=== PATIENT | male | born 1955 | race Caucasian/White ===

== ENCOUNTER → 2016-08-14 | Outpatient (CLI) | payer MEDICARE, MEDICAID ==
[~2016-08-14] MED LIST: /IPRAINH INH; ASPI1TAB PO; ASPI81TA85 PO; BACL10TA2 PO; BUSP10TA PO; BUSP5TA PO; CELE40TA PO; COMBAER6 INH; CRES20TA PO; DILT120T PO; EFFE37.527 PO; FLUT50SP; GABA-283 PO; HALO05TA PO; HYDR10T PO; KLON0.5T PO; LIPI10TA PO; LISI5TAB PO; LYRI100C10 PO; LYRI150C PO; MELA1CAP2 PO; OMEP20CA3 PO; PRAD150C PO; SERO1TAB PO; TIZA4CAP3 PO; TRAZ100T2 PO; ULTR50TA PO; VENTAER IN
== END ==
LOC: M PAIN 14:00
PROVIDERS: ATTEND Nurse Practitioner Family
DX: Z09 Encounter for follow-up examination after completed treatment for conditions other than malignant neoplasm (principal); G89.29 Other chronic pain; M54.16 Radiculopathy, lumbar region; M25.552 Pain in left hip; M41.55 Other secondary scoliosis, thoracolumbar region; M32.9 Systemic lupus erythematosus, unspecified; F17.200 Nicotine dependence, unspecified, uncomplicated; Z79.01 Long term (current) use of anticoagulants; Z79.82 Long term (current) use of aspirin; Z79.891 Long term (current) use of opiate analgesic; Z79.899 Other long term (current) drug therapy; Z88.8 Allergy status to other drugs, medicaments and biological substances

== ENCOUNTER → 2016-09-09 | Outpatient (CLI) | payer MEDICARE, MEDICAID ==
--- NOTE | 2016-09-24 01:39 | ECWPNPC ---
PATIENT NAME: SHEEBA PAT : 1955 GENDER: MALE VISIT DATE: 09/09/2016 DISCHARGE DATE: 09/09/16 1510 VISIT LOCKED DATE TIME: PHYSICIAN: JADA MANSFIELD RESOURCE: JADA MANSFIELD REASON FOR APPOINTMENT 1. HIPS HISTORY OF PRESENT ILLNESS HISTORY OF PRESENT ILLNESS: PAIN THE PATIENT DESCRIBES THE PAIN... FALL RISK SCREENING: SCREENING :NO FALLS IN THE PAST YEAR TODAY'S VISIT: NOTES: RATES PAIN TODAY 8/10. NOTES PAIN AT HIPS, KNEES, WRISTS. PAIN IS CONSTANT, ACHING, BURNING, TENDER AND THROBBING.HAD RECENT RIGHT CARPAL TUNNEL RELEASE WITH EXCELLANT HEALING AND IMPROVEMENT IN MOBILITY AND SENSATION. REPORT MEDICATIONS ARE HELPFUL AND THAT TODAY IS A BAD DAY.. CURRENT MEDICATIONS TAKING COMBIVENT 18-103 MCG/ACT AEROSOL 2 PUFFS INHALATION FOUR TIMES DAILY NEEDED TAKING BUSPIRONE HCL 10 MG TABLET 1 TABLET ORALLY THREE TIMES A DAY TAKING DILTIAZEM HCL 240 MG TABLET ORALLY DAILY TAKING FLUTICASONE PROPIONATE 50 MCG/ACT SUSPENSION 1 SPRAY IN EACH NOSTRIL NASALLY ONCE A DAY TAKING LISINOPRIL 10 MG TABLET 1 TABLET ORALLY ONCE A DAY TAKING PRADAXA 150 MG TABLET P.O. BID TAKING NEXIUM 20 MG CAPSULE DELAYED RELEASE ORALLY ONCE DAILY TAKING SPIRIVA HANDIHALER ONCE DAILY TAKING CRESTOR 10 MG TABLET ORALLY ONCE DAILY TAKING DIGOXIN 125 MCG TABLET 1 TABLET ORALLY ONCE A DAY TAKING FINASTERIDE 5 MG TABLET 1 TABLET ORALLY ONCE A DAY TAKING BREO ELLIPTA 100-25 MCG/INH AEROSOL POWDER BREATH ACTIVATED 1 PUFF INHALATION ONCE A DAY TAKING ASPIR-81 81 MG TABLET DELAYED RELEASE 1 TABLET ORALLY ONCE A DAY TAKING CYCLOBENZAPRINE HCL 10 MG TABLET 1 TABLET ORALLY THREE TIMES A DAY TAKING VOLTAREN 1 % GEL DIRECTED TRANSDERMAL 4 GMSFOUR TIMES DAILY TO KNEE/BACK TAKING CITALOPRAM HYDROBROMIDE 40 MG TABLET 1 TAB ORALLY ONCE A DAY TAKING HALDOL 5MG TABLET 1 -2MG TAB ORAL DAILY TAKING TRAMADOL HCL 50 MG TABLET 1 -2T ABLETS ORALLY EVERY 6 HRS MDD=4 TAKING LYRICA 200 MG CAPSULE 1 CAPSULE ORALLY THREE TIMES DAILY MDD=3 TAKING PERCOCET 10-325 MG TABLET 1 TABLET NEEDED ORALLY Q 8-12 HRS PRN PAIN MDD=2 NOT-TAKING TERBINAFINE HCL 250 MG TABLET 1 TABLET ORALLY ONCE A DAY NOT-TAKING SYMBICORT 160-4.5 MCG/ACT AEROSOL 2 PUFFS INHALATION DAILY NOT-TAKING ROPINIROLE HCL 0.5 MG TABLET 1 -2 TAB ORALLY BEFORE BEDTIME NOT-TAKING ASPIRIN ADULT LOW STRENGTH 81 MG TABLET DELAYED RELEASE 1 TABLET ORALLY ONCE A DAY UNKNOWN VOLTAREN 1 % GEL DIRECTED TRANSDERMAL APPLY 4 GRAMS FOUR TIMES DAILY MEDICATION LIST REVIEWED AND RECONCILED WITH THE PATIENT PAST MEDICAL HISTORY LUPUS ALLERGIES BETA LUI (FOR ALLERGIES USE ONLY): DYSPNEA: ALLERGY ATORVASTATIN CALCIUM: JOINT PAIN: SIDE EFFECTS SOCIAL HISTORY GENERAL: TOBACCO USE ARE YOU A:CURRENT SMOKER LEARNING BARRIERS / SPECIAL NEEDS ORIENTED TO PLAN OF CARE: PATIENT, PAIN MANAGEMENT PATIENT, ORIENTED TO PLAN OF CARE: PATIENT, PAIN MANAGEMENT PATIENT. NEW PATIENT PAIN DIARY TODAY'S VISITNOTES FROM 0-10, WHAT LEVEL IS YOUR PAIN TODAY?0 PAIN CLINIC PFS, CLERGY, PUBLIC HEALTH REFERRALS PFS REFERRAL NEEDED?NO CLERGY REFERRAL NEEDED?NO PUBLIC HEALTH REFERRAL NEEDED?NO WAS THE PROVIDER NOTIFIED OF ANY PERTINENT INFO?NO PFS REFERRAL NEEDED?NO CLERGY REFERRAL NEEDED?NO PUBLIC HEALTH REFERRAL NEEDED?NO WAS THE PROVIDER NOTIFIED OF ANY PERTINENT INFO?NO REVIEW OF SYSTEMS CONSTITUTIONAL: ANY CHANGE IN YOUR MEDICAL CONDITION? NO . CHILLS NO . FEVER NO . INFECTION: DO YOU HAVE NEW INFECTIONS? NO . DO YOU HAVE HISTORY OF MRSA? NO . MUSCULOSKELETAL: ANY NEW PATTERNS OF PAIN OR NUMBNESS? NO . GASTROENTEROLOGY: ANY NEW CHANGE IN BOWEL CONTROL? NO . GENITOURINARY: ANY NEW CHANGE IN BLADDER CONTROL? NO . IS THERE A CHANCE YOU COULD BE ? NO . HEMATOLOGY/LYMPH: DO YOU TAKE ANY BLOOD THINNERS? (FOR EXAMPLE- COUMADIN, PLAVIX, AGGRENOX, PLATEL, PRADAXA, OR XARELTO) YES, PRADAXA . WHEN WAS YOUR LAST DOSE? DATE:09/09/16 TIME: 0600 . NEUROLOGY: HAVE YOU FALLEN IN THE PAST 6 MONTHS? NO . ANY NEW EXTREMITY NUMBNESS OR WEAKNESS? NO . CARDIOLOGY: DO YOU HAVE A PACEMAKER OR DEFIBRILLATOR? NO . RESPIRATORY: HAVE YOU BEEN SICK IN THE PAST WEEK? NO . FEVER NO . FLU LIKE SYMPTOMS? NO . COUGH NO . INTEGUMENTARY: DO YOU HAVE ANY RASHES OR OPEN SORES? NO . ALLERGIC/IMMUNO: ARE YOU ALLERGIC TO SHELLFISH OR IV DYE? NO . ANY NEW ALLERGIES? NO . PSYCHIATRIC: DO YOU HAVE THOUGHTS OF HURTING YOURSELF OR SOMEONE ELSE? NO . ARE YOU ABUSED, NEGLECTED, OR IN AN UNSAFE ENVIRONMENT? NO . ENDOCRINOLOGY: ARE YOU DIABETIC? NO . OTHER: DO YOU NEED ANY PRESCRIPTIONS? YES . IF YES, PLEASE LIST: PERCOCET AND CYCLOBENZAPRINE . ANY NEW PROBLEMS WITH YOUR MEDICATIONS? NO . WHEN DID YOU LAST EAT? ____ . WHEN DID YOU LAST DRINK? ____ . WHAT DID YOU LAST DRINK? ____ . NAME OF PERSON DRIVING YOU HOME? ____ . DO YOU HAVE ANY OTHER QUESTIONS OR CONCERNS NO . REVIEWED BY: PROVIDER: JADA HAMILTON . VITAL SIGNS WT 227.8 LBS, HT 72 IN, BMI 30.89 INDEX, BP 146/73 MM HG, HR 97 /MIN, RR 18 /MIN, TEMP 97.7 F, OXYGEN SAT % 98, NA INITIALS TL 1425, REVIEWED BY: CS. EXAMINATION GENERAL EXAMINATION: PSYCHALERT , ORIENTED X 3 , APPROPRIATE MOOD AND AFFECT , GOOD EYE CONTACT, TALKATIVE. LUNGS:FEW SCATTEREDWHEEZES AT BASES. COUGH ELICITED WITH DEEP BREATH. HEART:HEART RATE REGULAR. MUSCULOSKELETAL:MUSCLE STRENGTH TESTING 4+/5 BILATERAL UPPER AND LOWER EXTREMITIES., PALPATION: POSITIVE FOR PAIN OVER L/S SPINE. POSITIVE FOR PAIN OVER L/S PARSPINALS. SLOW TO RISE TO STANDING POSITION. POINT TENDERNESS PRESENT OVER BILATERAL TROCANTERS. POSTURE STOOPED. GAIT WIDEBASED ANTALGIC. EXTREMITIES:WELL-HEALED INCISION AT RIGHT WRIST. SENSITIVITY NOTED ALONG THE INCISION. ABLE TO FLEX AND EXTEND THE FINGERS WITHOUT DIFFICULTY. STATION IMPROVED IN THE THUMB FIRST AND SECOND FINGER.. ASSESSMENTS LUMBAR RADICULAR PAIN - M54.16 (PRIMARY) JOINT PAIN - M25.50 OTHER SECONDARY SCOLIOSIS, THORACOLUMBAR REGION - M41.55 LUPUS (SYSTEMIC LUPUS ERYTHEMATOSUS) - M32.9 HIP PAIN, LEFT - M25.552 TREATMENT LUMBAR RADICULAR PAIN REFILL CYCLOBENZAPRINE HCL TABLET, 10 MG, 1 TABLET, ORALLY, THREE TIMES A DAY, 30 DAY(S), 90, REFILLS 2 REFILL PERCOCET TABLET, 10-325 MG, 1 TABLET NEEDED, ORALLY, Q 8-12 HRS PRN PAIN MDD=2, 30 DAY(S), 60, REFILLS 0 NOTES: STOP PRADAXA 3 DAYS BEFORE INJECTION.PATIENT REFUSED ANY PRINTED INFORMATION ON INJECTION. VERBAL INFORMATION GIVEN AND PATIENT VERBALIZED UNDERSTANDING. CLINICAL NOTES: ISTOP REGISTRY REVIEWED AND DEMNOSTRATES COMPLLIANCE. BRINGS IN MEDICATIONS WHICH IS APPROPRIATE FOR WHAT WAS DISPENSED. RECENT URINE TOXICOLOGY REVIEWED. NO UNAUTHORIZED MEDICATIONS. NO ILLICIT SUBSTANCES AND PRESCRIBED MEDICATIONS WERE PRESENT. JOINT PAIN ARTHROCENTESIS INJECTION LARGE JOINT ([id number])JADA MANSFIELD 09/09/2016 3:00:26 PM > BILATERAL HIP BURSA INJECTION HIP PAIN, LEFT ARTHROCENTESIS INJECTION LARGE JOINT ([id number])JADA MANSFIELD 09/09/2016 3:00:26 PM > BILATERAL HIP BURSA INJECTION PROCEDURE CODES FA211 ESTABILISHED PATIENT [facility] FACILITY CHARGE G8730 PAIN ASSESS POS TOOL F/U PLAN DOC G8427 DOC MEDS VERIFIED W/PT OR RE DISPOSITION & COMMUNICATION FOLLOW UP AFTER INJECTION ELECTRONICALLY SIGNED BY AMADOR SANDRA ON 09/23/2016 AT 02:19 PM EST DISCLAIMER : THIS IS A VISIT SUMMARY EXTRACTED FROM THE [facility] CHART. IT IS NOT A COPY OF THE [employer] PROGRESS NOTE. CLARKE
== END ==
LOC: M PAIN 14:20
PROVIDERS: ATTEND Nurse Practitioner Family
DX: Z09 Encounter for follow-up examination after completed treatment for conditions other than malignant neoplasm (principal); M54.16 Radiculopathy, lumbar region; M25.552 Pain in left hip; M41.55 Other secondary scoliosis, thoracolumbar region; M32.9 Systemic lupus erythematosus, unspecified; F17.200 Nicotine dependence, unspecified, uncomplicated; Z88.8 Allergy status to other drugs, medicaments and biological substances; Z79.01 Long term (current) use of anticoagulants; Z79.82 Long term (current) use of aspirin; Z79.891 Long term (current) use of opiate analgesic; Z79.51 Long term (current) use of inhaled steroids; Z79.899 Other long term (current) drug therapy

== ENCOUNTER → 2016-10-05 | Outpatient (CLI) | payer MEDICARE, MEDICAID | LOC: M PAIN 09:40 | PROVIDERS: ATTEND Anesthesiology | DX: Z09 Encounter for follow-up examination after completed treatment for conditions other than malignant neoplasm (principal); G89.29 Other chronic pain; M70.62 Trochanteric bursitis, left hip; M54.9 Dorsalgia, unspecified; M32.9 Systemic lupus erythematosus, unspecified; Z88.8 Allergy status to other drugs, medicaments and biological substances; Z79.01 Long term (current) use of anticoagulants; Z79.52 Long term (current) use of systemic steroids; Z79.82 Long term (current) use of aspirin; Z79.891 Long term (current) use of opiate analgesic; Z79.899 Other long term (current) drug therapy ==

== ENCOUNTER → 2016-10-07 | Outpatient (CLI) | payer MEDICARE, MEDICAID ==
[~2016-10-07] MED LIST changes: +BUPIVACAINE HCL 0.25% 30 ML VIAL As Ordered ONE; +ISOVUE-M 300 61% 15ML VIAL (Q9967) As Ordered ONE; +LIDOCAINE 1% SDV INJ 30 ML VIAL As Ordered ONE; +TRIAMCINOLONE ACETONIDE SUSP 40 MG/ML VIAL (J3301) As Ordered ONE; +diazePAM 5 MG TAB As Ordered ONE; +oxyCODONE 5MG TAB As Ordered ONE
--- NOTE | 2016-10-07 14:55 | REP ---
Partial left hip series: Three views. History: Left hip injection for pain. 6 seconds of fluoroscopy time is reported. Findings: A sequence of three fluoroscopically obtained intraprocedural spot radiographs of the left hip document needle position and contrast injection associated with left hip injection procedure. Signed by Rajesh Dale MD 10/07/2016 05:45 P
--- NOTE | 2016-10-13 00:19 | ECWPNPC ---
PATIENT NAME: SHEEBA PAT : 1955 GENDER: MALE VISIT DATE: 10/07/2016 DISCHARGE DATE: 10/07/16 1047 VISIT LOCKED DATE TIME: PHYSICIAN: KAL SELLERS RESOURCE: KAL SELLERS REASON FOR APPOINTMENT 1. HIP BURSA INJ HISTORY OF PRESENT ILLNESS HISTORY OF PRESENT ILLNESS: PAIN THE PATIENT DESCRIBES THE PAIN... FALL RISK SCREENING: SCREENING :NO FALLS IN THE PAST YEAR CURRENT MEDICATIONS TAKING COMBIVENT 18-103 MCG/ACT AEROSOL 2 PUFFS INHALATION FOUR TIMES DAILY NEEDED, NOTES: 10-07-16699 TAKING BUSPIRONE HCL 10 MG TABLET 1 TABLET ORALLY THREE TIMES A DAY, NOTES: 10-07-16699 TAKING DILTIAZEM HCL 240 MG TABLET ORALLY DAILY, NOTES: 10-07-16699 TAKING FLUTICASONE PROPIONATE 50 MCG/ACT SUSPENSION 1 SPRAY IN EACH NOSTRIL NASALLY ONCE A DAY, NOTES: NONE TAKING LISINOPRIL 10 MG TABLET 1 TABLET ORALLY ONCE A DAY, NOTES: 10-07-16699 TAKING PRADAXA 150 MG TABLET P.O. BID, NOTES: 10-03-16 TAKING NEXIUM 20 MG CAPSULE DELAYED RELEASE ORALLY ONCE DAILY, NOTES: 10-07-16699 TAKING SPIRIVA HANDIHALER ONCE DAILY, NOTES: 10-07-16699 TAKING CRESTOR 10 MG TABLET ORALLY ONCE DAILY, NOTES: 10-06-162099 TAKING DIGOXIN 125 MCG TABLET 1 TABLET ORALLY ONCE A DAY, NOTES: 10-07-16699 TAKING FINASTERIDE 5 MG TABLET 1 TABLET ORALLY ONCE A DAY, NOTES: 10-06-162099 TAKING BREO ELLIPTA 100-25 MCG/INH AEROSOL POWDER BREATH ACTIVATED 1 PUFF INHALATION ONCE A DAY, NOTES: 10-07-16699 TAKING ASPIR-81 81 MG TABLET DELAYED RELEASE 1 TABLET ORALLY ONCE A DAY, NOTES: 10-03-16 TAKING VOLTAREN 1 % GEL DIRECTED TRANSDERMAL 4 GMSFOUR TIMES DAILY TO KNEE/BACK, NOTES: NONE TAKING CITALOPRAM HYDROBROMIDE 40 MG TABLET 1 TAB ORALLY ONCE A DAY, NOTES: 10-07-16699 TAKING HALDOL 5MG TABLET 1 -2MG TAB ORAL DAILY, NOTES: 10-07-16699 TAKING TRAMADOL HCL 50 MG TABLET 1 -2T ABLETS ORALLY EVERY 6 HRS MDD=4, NOTES: 10-07-16699 TAKING LYRICA 200 MG CAPSULE 1 CAPSULE ORALLY THREE TIMES DAILY MDD=3, NOTES: 10-07-16699 TAKING CYCLOBENZAPRINE HCL 10 MG TABLET 1 TABLET ORALLY THREE TIMES A DAY, NOTES: 10-07-16699 TAKING PERCOCET 10-325 MG TABLET 1 TABLET NEEDED ORALLY Q 8-12 HRS PRN PAIN MDD=2, NOTES: 10-07-16699 NOT-TAKING TERBINAFINE HCL 250 MG TABLET 1 TABLET ORALLY ONCE A DAY DISCONTINUED SYMBICORT 160-4.5 MCG/ACT AEROSOL 2 PUFFS INHALATION DAILY DISCONTINUED ROPINIROLE HCL 0.5 MG TABLET 1 -2 TAB ORALLY BEFORE BEDTIME DISCONTINUED ASPIRIN ADULT LOW STRENGTH 81 MG TABLET DELAYED RELEASE 1 TABLET ORALLY ONCE A DAY DISCONTINUED VOLTAREN 1 % GEL DIRECTED TRANSDERMAL APPLY 4 GRAMS FOUR TIMES DAILY MEDICATION LIST REVIEWED AND RECONCILED WITH THE PATIENT PAST MEDICAL HISTORY LUPUS ALLERGIES BETA LUI (FOR ALLERGIES USE ONLY): DYSPNEA: ALLERGY ATORVASTATIN CALCIUM: JOINT PAIN: SIDE EFFECTS SOCIAL HISTORY GENERAL: TOBACCO USE ARE YOU A:NONSMOKER LEARNING BARRIERS / SPECIAL NEEDS ORIENTED TO PLAN OF CARE: PATIENT, PAIN MANAGEMENT PATIENT, ORIENTED TO PLAN OF CARE: PATIENT, PAIN MANAGEMENT PATIENT. NEW PATIENT PAIN DIARY TODAY'S VISITNOTES FROM 0-10, WHAT LEVEL IS YOUR PAIN TODAY?0 PAIN CLINIC PFS, CLERGY, PUBLIC HEALTH REFERRALS PFS REFERRAL NEEDED?NO CLERGY REFERRAL NEEDED?NO PUBLIC HEALTH REFERRAL NEEDED?NO WAS THE PROVIDER NOTIFIED OF ANY PERTINENT INFO?NO PFS REFERRAL NEEDED?NO CLERGY REFERRAL NEEDED?NO PUBLIC HEALTH REFERRAL NEEDED?NO WAS THE PROVIDER NOTIFIED OF ANY PERTINENT INFO?NO REVIEW OF SYSTEMS CONSTITUTIONAL: ANY CHANGE IN YOUR MEDICAL CONDITION? NO . CHILLS NO . FEVER NO . INFECTION: DO YOU HAVE NEW INFECTIONS? NO . DO YOU HAVE HISTORY OF MRSA? NO . MUSCULOSKELETAL: ANY NEW PATTERNS OF PAIN OR NUMBNESS? NO . GASTROENTEROLOGY: ANY NEW CHANGE IN BOWEL CONTROL? NO . GENITOURINARY: ANY NEW CHANGE IN BLADDER CONTROL? NO . IS THERE A CHANCE YOU COULD BE ? NO . HEMATOLOGY/LYMPH: DO YOU TAKE ANY BLOOD THINNERS? (FOR EXAMPLE- COUMADIN, PLAVIX, AGGRENOX, PLATEL, PRADAXA, OR XARELTO) YES, PRADAXA . WHEN WAS YOUR LAST DOSE? DATE: TIME: 10/03/16 . NEUROLOGY: HAVE YOU FALLEN IN THE PAST 6 MONTHS? NO . ANY NEW EXTREMITY NUMBNESS OR WEAKNESS? NO . CARDIOLOGY: DO YOU HAVE A PACEMAKER OR DEFIBRILLATOR? NO . RESPIRATORY: HAVE YOU BEEN SICK IN THE PAST WEEK? NO . FEVER NO . FLU LIKE SYMPTOMS? NO . COUGH NO . INTEGUMENTARY: DO YOU HAVE ANY RASHES OR OPEN SORES? NO . ALLERGIC/IMMUNO: ARE YOU ALLERGIC TO SHELLFISH OR IV DYE? NO . ANY NEW ALLERGIES? NO . PSYCHIATRIC: DO YOU HAVE THOUGHTS OF HURTING YOURSELF OR SOMEONE ELSE? NO . ARE YOU ABUSED, NEGLECTED, OR IN AN UNSAFE ENVIRONMENT? NO . ENDOCRINOLOGY: ARE YOU DIABETIC? NO . OTHER: DO YOU NEED ANY PRESCRIPTIONS? NO . IF YES, PLEASE LIST: ____ . ANY NEW PROBLEMS WITH YOUR MEDICATIONS? NO . WHEN DID YOU LAST EAT? 10-06-16 PM . WHEN DID YOU LAST DRINK? 10-07-16 0630 . WHAT DID YOU LAST DRINK? BLACK COFFEE . NAME OF PERSON DRIVING YOU HOME? TAXI . DO YOU HAVE ANY OTHER QUESTIONS OR CONCERNS NO . REVIEWED BY: PROVIDER: . VITAL SIGNS WT 235 LBS, HT 72 IN, BMI 31.87 INDEX, BP 127/91 MM HG, HR 92 /MIN, RR 16 /MIN, TEMP 96.7 F, OXYGEN SAT % 94%, NA INITIALS SC 09:09, REVIEWED BY: JOSE L. ASSESSMENTS UNILATERAL PRIMARY OSTEOARTHRITIS, LEFT HIP - M16.12 (PRIMARY) TREATMENT UNILATERAL PRIMARY OSTEOARTHRITIS, LEFT HIP NOTES: PREPROCEDURE DIAGNOSIS: BURSITIS AT THE LEFT GREATER TROCHANTER OF THE FEMUR. POSTPROCEDURE DIAGNOSIS: BURSITIS AT THE LEFT GREATER TROCHANTER OF THE FEMUR. PROCEDURE: INJECTION AT THE BURSA OF THE OF THE LEFT GREATER TROCHANTER OF THE FEMUR UNDER FLUOROSCOPIC GUIDANCE. SURGEON: DR. KAL SELLERS COUNSELOR CAMP: NONEANESTHESIA: LOCAL. PREOPERATIVE NOTE: THE PATIENT HAS A HISTORY OF LEFT HIP PAIN. I EVALUATED THE PATIENT AND REVIEWED THE CHART. WE BOTH AGREE ON INJECTING OVER THE BURSA OF THE LEFT GREATER TROCHANTER OF THE FEMUR. I WENT THROUGH THE RISKS, ALTERNATIVES, AND BENEFITS ASSOCIATED WITH THIS PROCEDURE. THE PATIENT WOULD LIKE TO PROCEED AND GIVE CONSENT TO PERFORMED THE PROCEDURE. THE PATIENT DENIES UNEXPLAINABLE WEIGHT LOSS, FEVERS, CHILLS, OR CHANGES IN HIS URINARY OR BOWEL CONTROL. DESCRIPTION OF PROCEDURE: AFTER CONSENT WAS TAKEN, THE PATIENT WAS BROUGHT TO THE PROCEDURE ROOM AND PLACED IN THE RIGHT LATERAL DECUBITUS POSITION. THE LEFT HIP AREA WAS CLEANED WITH CHLORAPREP SOLUTION AND DRAPED ASEPTICALLY. THE PROCEDURE WAS DONE UNDER STERILE CONDITIONS. I CHECKED LATERALITY WITH THE PATIENT AND THE STAFF IN THE PROCEDURE ROOM AT THE MOMENT OF THE TIME OUT. UNDER FLUOROSCOPIC GUIDANCE, TARGET WAS SELECTED AT THE LEFT GREATER TROCHANTER OF THE FEMUR. LIDOCAINE WAS USED TO NUMB THE SKIN AND THE SUBCUTANEOUS TISSUE BELOW IT. SPINAL NEEDLE, 22-GAUGE WAS ADVANCED UNDER FLUOROSCOPIC GUIDANCE AND FOLLOWING PATIENT FEEDBACK UNTIL THE TARGET WAS TOUCHED. POSITION OF THE NEEDLE WAS VERIFIED WITH AP AND LATERAL VIEWS. AFTER PROPER POSITION OF THE NEEDLE WAS ACHIEVED, ISOVUE M DYE, 30%, 0.25 ML WAS INJECTED SHOWING ADEQUATE SPREAD OF THE DYE. THEN A SOLUTION OF 20 ML OF BUPIVACAINE 0.25% AND KENALOG 40 MG WAS INJECTED. THERE WAS NO EVIDENCE OF BLOOD, PARESTHESIA, OR CEREBROSPINAL FLUID. THE PATIENT WAS SENT TO THE RECOVERY ROOM. THE PATIENT WAS MOVING THE EXTREMITIES AND DOING WELL. THERE WERE NO COMPLICATIONS DURING THE PROCEDURE. POSTOPERATIVE NOTE: I DISCUSSED ALTERNATIVES WITH THE PATIENT. WE WILL SEE THE PATIENT BACK IN SEVERAL WEEKS FOR REEVALUATION OF THE CASE. I AM LOOKING FOR LONG-LASTING PAIN RELIEF WITH THIS INTERVENTION. FLUOROSCOPIC TIME WAS 42 SECONDS. FURTHER RECOMMENDATIONS WILL BE DONE DEPENDING ON HOW THE PATIENT DOES. THERE WERE NO COMPLICATIONS.I, AUNDREA SIMON, DOCUMENTED THE ABOVE INFORMATION ACTING A SCRIBE FOR DR. SELLERS. I, DR. SELLERS, HAVE REVIEWED THE ABOVE DOCUMENT, SCRIBED BY AUNDREA SIMON, AND I VERIFY THAT IT IS ACCURATE. DIAGNOSTIC IMAGING [facility] FLUORO GUIDANCE (PAIN)[id number] PROCEDURE CODES 74279 DRAIN/INJ JOINT/BURSA W/O [place] 6045F RADXPS IN END [id number] PXD 25219 NEEDLE LOCALIZATION BY XRAY DISPOSITION & COMMUNICATION FOLLOW UP 3 WEEKS ELECTRONICALLY SIGNED BY KAL SELLERS MD ON 10/11/2016 AT 10:59 AM EDT DISCLAIMER : THIS IS A VISIT SUMMARY EXTRACTED FROM THE [employer] CHART. IT IS NOT A COPY OF THE [employer] PROGRESS NOTE. CLARKE
== END ==
LOC: M PAIN 09:00
PROVIDERS: ATTEND Anesthesiology
DX: G89.29 Other chronic pain (principal); M16.12 Unilateral primary osteoarthritis, left hip; M70.62 Trochanteric bursitis, left hip; M32.9 Systemic lupus erythematosus, unspecified; Z79.51 Long term (current) use of inhaled steroids; Z79.01 Long term (current) use of anticoagulants; Z79.82 Long term (current) use of aspirin; Z79.891 Long term (current) use of opiate analgesic; Z88.8 Allergy status to other drugs, medicaments and biological substances
CPT/HCPCS: 20610; 77002; J3301; Q9967

== ENCOUNTER → 2016-11-12 | Outpatient (CLI) | payer MEDICARE, MEDICAID ==
[~2016-11-12] MED LIST changes: -BUPIVACAINE HCL 0.25% 30 ML VIAL As Ordered ONE; -ISOVUE-M 300 61% 15ML VIAL (Q9967) As Ordered ONE; -LIDOCAINE 1% SDV INJ 30 ML VIAL As Ordered ONE; -TRIAMCINOLONE ACETONIDE SUSP 40 MG/ML VIAL (J3301) As Ordered ONE; -diazePAM 5 MG TAB As Ordered ONE; -oxyCODONE 5MG TAB As Ordered ONE
--- NOTE | 2016-11-14 00:03 | ECWPNPC ---
PATIENT NAME: SHEEBA PAT : 1955 GENDER: MALE VISIT DATE: 11/12/2016 DISCHARGE DATE: 11/12/16 1549 VISIT LOCKED DATE TIME: PHYSICIAN: JADA MANSFIELD RESOURCE: JADA MANSFIELD REASON FOR APPOINTMENT 1. BACK AND HIPS HISTORY OF PRESENT ILLNESS HISTORY OF PRESENT ILLNESS: PAIN THE PATIENT DESCRIBES THE PAIN... FALL RISK SCREENING: SCREENING :NO FALLS IN THE PAST YEAR TODAY'S VISIT: NOTES: IS S/P LEFT BURSA HIP INJECTION ON 10/07/16. PAIN DECREASED BY 50% WAS ALMOST 100% GONE 10 DAYS AND THEN SLOWLY HAS INCREASED. TODAY WORST IS AT LEFT KNEE. ALSO REPORTS HAS BEEN OUT OF HIS MENTAL HEALTH MEDS TODAY AND THIS HAS MADE HIM VERY JITTERY. NOTES SIGNIFICANT IMPROVEMENT IN RIGHT WRIST PAIN AND HAND NUMBNESS. CURRENT MEDICATIONS TAKING COMBIVENT 18-103 MCG/ACT AEROSOL 2 PUFFS INHALATION FOUR TIMES DAILY NEEDED, NOTES: 10-07-16699 TAKING BUSPIRONE HCL 10 MG TABLET 1 TABLET ORALLY THREE TIMES A DAY, NOTES: 10-07-16699 TAKING DILTIAZEM HCL 240 MG TABLET ORALLY DAILY, NOTES: 10-07-16699 TAKING FLUTICASONE PROPIONATE 50 MCG/ACT SUSPENSION 1 SPRAY IN EACH NOSTRIL NASALLY ONCE A DAY, NOTES: NONE TAKING LISINOPRIL 10 MG TABLET 1 TABLET ORALLY ONCE A DAY, NOTES: 10-07-16699 TAKING PRADAXA 150 MG TABLET P.O. BID, NOTES: 10-03-16 TAKING NEXIUM 20 MG CAPSULE DELAYED RELEASE ORALLY ONCE DAILY, NOTES: 10-07-16699 TAKING SPIRIVA HANDIHALER ONCE DAILY, NOTES: 10-07-16699 TAKING CRESTOR 10 MG TABLET ORALLY ONCE DAILY, NOTES: 10-06-162099 TAKING DIGOXIN 125 MCG TABLET 1 TABLET ORALLY ONCE A DAY, NOTES: 10-07-16699 TAKING FINASTERIDE 5 MG TABLET 1 TABLET ORALLY ONCE A DAY, NOTES: 10-06-162099 TAKING BREO ELLIPTA 100-25 MCG/INH AEROSOL POWDER BREATH ACTIVATED 1 PUFF INHALATION ONCE A DAY, NOTES: 10-07-16699 TAKING ASPIR-81 81 MG TABLET DELAYED RELEASE 1 TABLET ORALLY ONCE A DAY, NOTES: 10-03-16 TAKING VOLTAREN 1 % GEL DIRECTED TRANSDERMAL 4 GMSFOUR TIMES DAILY TO KNEE/BACK, NOTES: NONE TAKING CITALOPRAM HYDROBROMIDE 40 MG TABLET 1 TAB ORALLY ONCE A DAY, NOTES: 10-07-16699 TAKING HALDOL 5MG TABLET 1 -2MG TAB ORAL DAILY, NOTES: 10-07-16699 TAKING TRAMADOL HCL 50 MG TABLET 1 -2T ABLETS ORALLY EVERY 6 HRS MDD=4, NOTES: 10-07-16699 TAKING CYCLOBENZAPRINE HCL 10 MG TABLET 1 TABLET ORALLY THREE TIMES A DAY, NOTES: 10-07-16699 TAKING LYRICA 200 MG CAPSULE 1 CAPSULE ORALLY THREE TIMES DAILY MDD=3 TAKING PERCOCET 10-325 MG TABLET 1 TABLET NEEDED ORALLY Q 8-12 HRS PRN PAIN MDD=2 TAKING ALBUTEROL 90 MCG/ACT AEROSOL SOLUTION INHALATION NOT-TAKING TERBINAFINE HCL 250 MG TABLET 1 TABLET ORALLY ONCE A DAY MEDICATION LIST REVIEWED AND RECONCILED WITH THE PATIENT PAST MEDICAL HISTORY LUPUS ALLERGIES BETA LUI (FOR ALLERGIES USE ONLY): DYSPNEA: ALLERGY ATORVASTATIN CALCIUM: JOINT PAIN: SIDE EFFECTS SOCIAL HISTORY GENERAL: PAIN CLINIC PFS, CLERGY, PUBLIC HEALTH REFERRALS CLERGY REFERRAL NEEDED?NO WAS THE PROVIDER NOTIFIED OF ANY PERTINENT INFO?NO PFS REFERRAL NEEDED?NO PUBLIC HEALTH REFERRAL NEEDED?NO PATIENT: ____. REVIEW OF SYSTEMS CONSTITUTIONAL: ANY CHANGE IN YOUR MEDICAL CONDITION? NO . CHILLS NO . FEVER NO . INFECTION: DO YOU HAVE NEW INFECTIONS? NO . DO YOU HAVE HISTORY OF MRSA? NO . MUSCULOSKELETAL: ANY NEW PATTERNS OF PAIN OR NUMBNESS? NO . GASTROENTEROLOGY: ANY NEW CHANGE IN BOWEL CONTROL? NO . GENITOURINARY: ANY NEW CHANGE IN BLADDER CONTROL? YES PT REPORTS HE FEELS THE URGE TO URINATE, BUT IS OFTEN UNABLE TO INITIATE STREAM. SEEN BY A UROLOGIST IN [facility] . IS THERE A CHANCE YOU COULD BE ? NO . HEMATOLOGY/LYMPH: DO YOU TAKE ANY BLOOD THINNERS? (FOR EXAMPLE- COUMADIN, PLAVIX, AGGRENOX, PLATEL, PRADAXA, OR XARELTO) YES PRADAXA . WHEN WAS YOUR LAST DOSE? DATE: TIME: . NEUROLOGY: HAVE YOU FALLEN IN THE PAST 6 MONTHS? NO . ANY NEW EXTREMITY NUMBNESS OR WEAKNESS? NO . CARDIOLOGY: DO YOU HAVE A PACEMAKER OR DEFIBRILLATOR? NO . RESPIRATORY: HAVE YOU BEEN SICK IN THE PAST WEEK? NO . FEVER NO . FLU LIKE SYMPTOMS? NO . DO YOU USE ANY TYPE OF TOBACCO (SMOKE, SMOKELESS, CHEW)? HAS CUT BACK TO 5 MAX CIG PER DAY . COUGH NO . INTEGUMENTARY: DO YOU HAVE ANY RASHES OR OPEN SORES? NO . ALLERGIC/IMMUNO: ARE YOU ALLERGIC TO SHELLFISH OR IV DYE? NO . ANY NEW ALLERGIES? NO . PSYCHIATRIC: DO YOU HAVE THOUGHTS OF HURTING YOURSELF OR SOMEONE ELSE? NO . ARE YOU ABUSED, NEGLECTED, OR IN AN UNSAFE ENVIRONMENT? NO . ENDOCRINOLOGY: ARE YOU DIABETIC? NO . OTHER: DO YOU NEED ANY PRESCRIPTIONS? NO . IF YES, PLEASE LIST: ____ . ANY NEW PROBLEMS WITH YOUR MEDICATIONS? NO . WHEN DID YOU LAST EAT? ____ . WHEN DID YOU LAST DRINK? ____ . WHAT DID YOU LAST DRINK? ____ . NAME OF PERSON DRIVING YOU HOME? ____ . DO YOU HAVE ANY OTHER QUESTIONS OR CONCERNS NO . PSYCHOLOGY: ARE YOU RECEIVING COUNSELING? CONTINUES WITH COUNSELING - HAS BEEN OUT OF HALDOL TODAY AND IS NOTING JITTERYNESS, TREMORS, TONGUE STIFFNESS AND EMERGING AGITATION. WILL STREET LIGHT MECHANIC MEDS LATER TODAY . REVIEWED BY: PROVIDER: JADA HAMILTON . VITAL SIGNS WT 226.6 LBS, HT 72 IN, BMI 30.73 INDEX, BP 181/102 MM HG, REPEAT BP 160/70 MANUAL BP, HR 65 /MIN, RR 20 /MIN, TEMP 98.4 F, OXYGEN SAT % 97%, SAFE IN ENV? (Y/N) YES, NA INITIALS AW 1516, REVIEWED BY: EMILIANO KNOW ABOUT BP. EXAMINATION GENERAL EXAMINATION: PSYCHALERT , ORIENTED X 3 , APPROPRIATE MOOD AND AFFECT , GOOD EYE CONTACT, TALKATIVE. LUNGS:FEW SCATTEREDWHEEZES AT BASES. COUGH ELICITED WITH DEEP BREATH. HEART:HEART RATE REGULAR. MUSCULOSKELETAL:MUSCLE STRENGTH TESTING 4+/5 BILATERAL UPPER AND LOWER EXTREMITIES., PALPATION: POSITIVE FOR PAIN OVER L/S SPINE. POSITIVE FOR PAIN OVER L/S PARSPINALS. SLOW TO RISE TO STANDING POSITION. POINT TENDERNESS PRESENT OVER BILATERAL TROCANTERS. POSTURE STOOPED. GAIT WIDEBASED ANTALGIC. EXTREMITIES:WELL-HEALED INCISION AT RIGHT WRIST. SENSITIVITY NOTED ALONG THE INCISION. ABLE TO FLEX AND EXTEND THE FINGERS WITHOUT DIFFICULTY. SENSATION IMPROVED IN THE THUMB FIRST AND SECOND FINGER.. ASSESSMENTS LUMBAR RADICULAR PAIN - M54.16 (PRIMARY) TROCHANTERIC BURSITIS, RIGHT HIP - M70.61 TROCHANTERIC BURSITIS OF LEFT HIP - M70.62 PRIMARY OSTEOARTHRITIS, UNSPECIFIED SITE - M19.91 TREATMENT LUMBAR RADICULAR PAIN NOTES: CALL WHEN SCRIPTS DUE. PROCEDURE CODES [id number] ESTABILISHED PATIENT [facility] CHARGE G8730 PAIN ASSESS POS TOOL F/U PLAN DOC G8427 DOC MEDS VERIFIED W/PT OR RE DISPOSITION & COMMUNICATION FOLLOW UP 6 WEEKS ELECTRONICALLY SIGNED BY AMADOR SANDRA ON 11/13/2016 AT 10:03 AM EDT DISCLAIMER : THIS IS A VISIT SUMMARY EXTRACTED FROM THE [employer] CHART. IT IS NOT A COPY OF THE [employer] PROGRESS NOTE. [place]
== END ==
LOC: M PAIN 14:40
PROVIDERS: ATTEND Nurse Practitioner Family
DX: Z09 Encounter for follow-up examination after completed treatment for conditions other than malignant neoplasm (principal); M54.16 Radiculopathy, lumbar region; M70.61 Trochanteric bursitis, right hip; M70.62 Trochanteric bursitis, left hip; F17.210 Nicotine dependence, cigarettes, uncomplicated; M19.91 Primary osteoarthritis, unspecified site; M32.9 Systemic lupus erythematosus, unspecified; Z79.01 Long term (current) use of anticoagulants; Z79.82 Long term (current) use of aspirin; Z79.891 Long term (current) use of opiate analgesic; Z79.51 Long term (current) use of inhaled steroids; Z79.899 Other long term (current) drug therapy; Z88.8 Allergy status to other drugs, medicaments and biological substances

== ENCOUNTER → 2016-12-24 | Outpatient (CLI) | payer MEDICARE, MEDICAID ==
--- NOTE | 2016-12-29 00:01 | ECWPNPC ---
PATIENT NAME: SHEEBA PAT : 1955 GENDER: MALE VISIT DATE: 12/24/2016 DISCHARGE DATE: 12/24/16 1637 VISIT LOCKED DATE TIME: PHYSICIAN: JADA MANSFIELD RESOURCE: AJDA MANSFIELD REASON FOR APPOINTMENT 1. FOLLOWUP HISTORY OF PRESENT ILLNESS HISTORY OF PRESENT ILLNESS: PAIN THE PATIENT DESCRIBES THE PAIN... FALL RISK SCREENING: SCREENING :NO FALLS IN THE PAST YEAR TODAY'S VISIT: NOTES: RATES PAIN TODAY 8/10. DESCRIBES PAIN CONSTANT, ACHING BURNING , TENDER AND THROBBING. TODAY WORST AREA IS BACK PAIN, NOTES SWELLING TODAY OF RIGHT SIDE OF HIS SAGE. WEATHER MAKES A DIFFERENCE. HIP PAIN IS STILL IMPROVED S/P HIP BURSA INJECTION. DENIES ADVERSE REACTIONS TO PAIN MEDS. PAIN MEDS ALLOW HIM TO FUNCTIONAND WILL BE RESTARTING HIS COLLEGE COURSES SOON.. CURRENT MEDICATIONS TAKING COMBIVENT 18-103 MCG/ACT AEROSOL 2 PUFFS INHALATION FOUR TIMES DAILY NEEDED, NOTES: 10-07-16699 TAKING BUSPIRONE HCL 10 MG TABLET 1 TABLET ORALLY THREE TIMES A DAY, NOTES: 10-07-16699 TAKING DILTIAZEM HCL 240 MG TABLET ORALLY DAILY, NOTES: 10-07-16699 TAKING FLUTICASONE PROPIONATE 50 MCG/ACT SUSPENSION 1 SPRAY IN EACH NOSTRIL NASALLY ONCE A DAY, NOTES: NONE TAKING LISINOPRIL 10 MG TABLET 1 TABLET ORALLY ONCE A DAY, NOTES: 10-07-16699 TAKING PRADAXA 150 MG TABLET P.O. BID, NOTES: 10-03-16 TAKING SPIRIVA HANDIHALER ONCE DAILY, NOTES: 10-07-16699 TAKING CRESTOR 10 MG TABLET ORALLY ONCE DAILY, NOTES: 10-06-162099 TAKING DIGOXIN 125 MCG TABLET 1 TABLET ORALLY ONCE A DAY, NOTES: 10-07-16699 TAKING FINASTERIDE 5 MG TABLET 1 TABLET ORALLY ONCE A DAY, NOTES: 10-06-162099 TAKING BREO ELLIPTA 100-25 MCG/INH AEROSOL POWDER BREATH ACTIVATED 1 PUFF INHALATION ONCE A DAY, NOTES: 10-07-16699 TAKING ASPIR-81 81 MG TABLET DELAYED RELEASE 1 TABLET ORALLY ONCE A DAY, NOTES: 10-03-16 TAKING VOLTAREN 1 % GEL DIRECTED TRANSDERMAL 4 GMSFOUR TIMES DAILY TO KNEE/BACK, NOTES: NONE TAKING CITALOPRAM HYDROBROMIDE 40 MG TABLET 1 TAB ORALLY ONCE A DAY, NOTES: 10-07-16699 TAKING HALDOL 5MG TABLET 1 -2MG TAB ORAL DAILY, NOTES: 10-07-16699 TAKING CYCLOBENZAPRINE HCL 10 MG TABLET 1 TABLET ORALLY THREE TIMES A DAY, NOTES: 10-07-16699 TAKING LYRICA 200 MG CAPSULE 1 CAPSULE ORALLY THREE TIMES DAILY MDD=3 TAKING ALBUTEROL 90 MCG/ACT AEROSOL SOLUTION INHALATION TAKING PERCOCET 10-325 MG TABLET 1 TABLET NEEDED ORALLY Q 8-12 HRS PRN PAIN MDD=2 TAKING TRAMADOL HCL 50 MG TABLET 1 -2T ABLETS ORALLY EVERY 6 HRS MDD=4 TAKING PROTONIX 40 MG TABLET DELAYED RELEASE 1 TABLET ORALLY ONCE A DAY NOT-TAKING TERBINAFINE HCL 250 MG TABLET 1 TABLET ORALLY ONCE A DAY DISCONTINUED NEXIUM 20 MG CAPSULE DELAYED RELEASE ORALLY ONCE DAILY, NOTES: 10-07-16699 MEDICATION LIST REVIEWED AND RECONCILED WITH THE PATIENT PAST MEDICAL HISTORY LUPUS HYPERCHLOESTREMIA HTN HARD PROSTRATE RIDICULAR BACK PAIN A-FIB COPD ANXIETY BILATERAL CARPAL TUNNEL SYNDROME ALLERGIES BETA LUI (FOR ALLERGIES USE ONLY): DYSPNEA: ALLERGY ATORVASTATIN CALCIUM: JOINT PAIN: SIDE EFFECTS SOCIAL HISTORY GENERAL: TOBACCO USE ARE YOU A:CURRENT SMOKER PATIENT COUNSELED ON THE DANGERS OF TOBACCO USE AND URGED TO QUIT:12/24/2016 ARE YOU INTERESTED IN QUITTING?THINKING ABOUT QUITTING COUNSELED THE PATIENT ON SMOKING CESSATION, EDUCATION [id number]/25/2017 ALCOHOL SCREENING POINTS: 0, INTERPRETATION: NEGATIVE. RECREATIONAL DRUG USE DRUG USE?NO LEARNING BARRIERS / SPECIAL NEEDS ABILITY TO UNDERSTAND VERBAL INSTRUCTIONS AVERAGE, ABILITY TO UNDERSTAND WRITTEN INSTRUCTIONS AVERAGE, ANGLICAN? NO, LEARNING PREFERENCE NO PREFERENCE, PAIN MANAGEMENT PATIENT. ADVANCED DIRECTIVES HEALTH CARE PROXY?NO POWER OF VARNISH COOKER?NO CURRENT SMOKER, DOWN TO 3 CIGS/DAY. REVIEW OF SYSTEMS CONSTITUTIONAL: ANY CHANGE IN YOUR MEDICAL CONDITION? NO . CHILLS NO . FEVER NO . INFECTION: DO YOU HAVE NEW INFECTIONS? NO . DO YOU HAVE HISTORY OF MRSA? NO . MUSCULOSKELETAL: ANY NEW PATTERNS OF PAIN OR NUMBNESS? NO . GASTROENTEROLOGY: ANY NEW CHANGE IN BOWEL CONTROL? NO . GENITOURINARY: ANY NEW CHANGE IN BLADDER CONTROL? NO . IS THERE A CHANCE YOU COULD BE ? NO . HEMATOLOGY/LYMPH: DO YOU TAKE ANY BLOOD THINNERS? (FOR EXAMPLE- COUMADIN, PLAVIX, AGGRENOX, PLATEL, PRADAXA, OR XARELTO) YES . WHEN WAS YOUR LAST DOSE? DATE: TIME: 12/24/16 . NEUROLOGY: HAVE YOU FALLEN IN THE PAST 6 MONTHS? NO . ANY NEW EXTREMITY NUMBNESS OR WEAKNESS? NO . BURNING PAIN IN HANDS WELL IMPROVED /P CTS RELEASE ON RIGHT - TO SCHEDULE LEFT SOON. . CARDIOLOGY: DO YOU HAVE A PACEMAKER OR DEFIBRILLATOR? NO . RESPIRATORY: HAVE YOU BEEN SICK IN THE PAST WEEK? NO . FEVER NO . FLU LIKE SYMPTOMS? NO . DO YOU USE ANY TYPE OF TOBACCO (SMOKE, SMOKELESS, CHEW)? HAS CUT BACK ON SMOKING - 3-5 CIGARETTES PER DAY . COUGH NO . INTEGUMENTARY: DO YOU HAVE ANY RASHES OR OPEN SORES? NO . ALLERGIC/IMMUNO: ARE YOU ALLERGIC TO SHELLFISH OR IV DYE? NO . ANY NEW ALLERGIES? NO . PSYCHIATRIC: DO YOU HAVE THOUGHTS OF HURTING YOURSELF OR SOMEONE ELSE? NO . ARE YOU ABUSED, NEGLECTED, OR IN AN UNSAFE ENVIRONMENT? NO . ENDOCRINOLOGY: ARE YOU DIABETIC? NO . OTHER: DO YOU NEED ANY PRESCRIPTIONS? NO . IF YES, PLEASE LIST: ____ . ANY NEW PROBLEMS WITH YOUR MEDICATIONS? NO . WHEN DID YOU LAST EAT? ____ . WHEN DID YOU LAST DRINK? ____ . WHAT DID YOU LAST DRINK? ____ . NAME OF PERSON DRIVING YOU HOME? ____ . DO YOU HAVE ANY OTHER QUESTIONS OR CONCERNS NO . REVIEWED BY: PROVIDER: JADA HAMILTON . VITAL SIGNS WT 230.4 LBS, HT 72 IN, BMI 31.24 INDEX, BP 126/80 MM HG, HR 89 /MIN, RR 18 /MIN, TEMP 97.4 F, OXYGEN SAT % 95%, NA INITIALS SC 15:42, REVIEWED BY: VD. EXAMINATION GENERAL EXAMINATION: PSYCHALERT , ORIENTED X 3 , APPROPRIATE MOOD AND AFFECT , GOOD EYE CONTACT, TALKATIVE. LUNGS:CLEAR TO AUSCULTATION BILATERALLY. HEART:HEART RATE REGULAR. MUSCULOSKELETAL:MUSCLE STRENGTH TESTING 5/5 BILATERAL UPPER AND LOWER EXTREMITIES., PALPATION: TENDER POINTS IDENTIFIED OVER LUMBOSACRAL SXIS.. SLOW TO RISE TO STANDING POSITION. POINT TENDERNESS PRESENT OVER BILATERAL TROCANTERS. POSTURE STOOPED. GAIT WIDEBASED, MILDLY ANTALGIC . EXTREMITIES:WELL-HEALED INCISION AT RIGHT WRIST. SENSITIVITY NOTED ALONG THE INCISION. ABLE TO FLEX AND EXTEND THE FINGERS WITHOUT DIFFICULTY. SENSATION IMPROVED IN THE THUMB FIRST AND SECOND FINGER.. ASSESSMENTS LUMBAR RADICULAR PAIN - M54.16 (PRIMARY) TROCHANTERIC BURSITIS, RIGHT HIP - M70.61 TROCHANTERIC BURSITIS OF LEFT HIP - M70.62 PRIMARY OSTEOARTHRITIS, UNSPECIFIED SITE - M19.91 TREATMENT LUMBAR RADICULAR PAIN STOP TRAMADOL HCL TABLET, 50 MG, 1 -2T ABLETS, ORALLY, EVERY 6 HRS MDD=4 START FENTANYL PATCH 72 HOUR, 12 MCG/HR, 1 PATCH TO SKIN, TRANSDERMAL, APPLY 1 PATCH TO SKIN EVERY 72 HOURS MDD=1, 30 DAY(S), 10, REFILLS 0 REFILL PERCOCET TABLET, 10-325 MG, 1 TABLET NEEDED, ORALLY, Q 8-12 HRS PRN PAIN MDD=2, 30 DAY(S), 60, REFILLS 0 ARTHROCENTESIS INJECTION LARGE JOINT ([id number])JADA MANSFIELD 12/24/2016 4:14:54 PM > LEFT HIP BURSA INJECTION NOTES: CONTINUE BEING ACTIVE. BRING PAIN MEDS TO EVERY APPOINTMENT, HOLD XARALTO 3 DAYS BEFORE INJECTION. CLINICAL NOTES: ISTOP REGISTRY REVIEWED AND DEMNOSTRATES COMPLLIANCE. DID NOT BRING.MEDICATIONS TODAY. RECENT URINE TOXICOLOGY REVIEWED. NO UNAUTHORIZED MEDICATIONS. NO ILLICIT SUBSTANCES AND PRESCRIBED MEDICATIONS WERE PRESENT. PREVENTIVE MEDICINE TROCANTERIC BURSA INJECTION INSTRUCTIONS GIVEN. PROCEDURE CODES G8730 PAIN ASSESS POS TOOL F/U PLAN DOC G8427 DOC MEDS VERIFIED W/PT OR RE DISPOSITION & COMMUNICATION FOLLOW UP 2 MONTHS (REASON: GET AUTH FOR LEFT HIP BURSA INJECTION (ON XARALTO)) ELECTRONICALLY SIGNED BY AMADOR SANDRA ON 12/28/2016 AT 01:53 PM EDT DISCLAIMER : THIS IS A VISIT SUMMARY EXTRACTED FROM THE [employer] CHART. IT IS NOT A COPY OF THE [employer] PROGRESS NOTE. CLARKE
== END ==
LOC: M PAIN 15:00
PROVIDERS: ATTEND Nurse Practitioner Family
DX: G89.29 Other chronic pain (principal); M54.16 Radiculopathy, lumbar region; M70.61 Trochanteric bursitis, right hip; M70.62 Trochanteric bursitis, left hip; M19.91 Primary osteoarthritis, unspecified site; M32.9 Systemic lupus erythematosus, unspecified; E78.00 Pure hypercholesterolemia, unspecified; I10 Essential (primary) hypertension; I48.91 Unspecified atrial fibrillation; J44.9 Chronic obstructive pulmonary disease, unspecified; F41.9 Anxiety disorder, unspecified; G56.03 Carpal tunnel syndrome, bilateral upper limbs; F17.210 Nicotine dependence, cigarettes, uncomplicated; Z88.8 Allergy status to other drugs, medicaments and biological substances; Z79.01 Long term (current) use of anticoagulants; Z79.51 Long term (current) use of inhaled steroids; Z79.82 Long term (current) use of aspirin; Z79.891 Long term (current) use of opiate analgesic; Z79.899 Other long term (current) drug therapy

== ENCOUNTER → 2017-02-11 | Outpatient (CLI) | payer MEDICARE, MEDICAID ==
[~2017-02-11] MED LIST changes: +HYDR-643 PO; -HYDR10T PO; -LYRI100C10 PO; +PREG100CA PO
--- NOTE | 2017-03-08 00:12 | ECWPNPC ---
PATIENT NAME: SHEEBA PAT : 1955 GENDER: MALE VISIT DATE: 02/11/2017 DISCHARGE DATE: 02/11/17 1108 VISIT LOCKED DATE TIME: PHYSICIAN: JADA MANSFIELD RESOURCE: JADA MANSFIELD REASON FOR APPOINTMENT 1. MEDS HISTORY OF PRESENT ILLNESS HISTORY OF PRESENT ILLNESS: PAIN THE PATIENT DESCRIBES THE PAIN... FALL RISK SCREENING: SCREENING :NO FALLS IN THE PAST YEAR TODAY'S VISIT: NOTES: RATES PAIN TODAY 9/10. NOTES SIGN PAIN IN JOINTS, PARTICULARLY THE LEFT HIP. LOW BACK IS ALSO INCREASED IN PAIN WITH TWISTING OR PROLONGED STANDING.. CURRENT MEDICATIONS TAKING COMBIVENT 18-103 MCG/ACT AEROSOL 2 PUFFS INHALATION FOUR TIMES DAILY NEEDED, NOTES: 10-07-16699 TAKING BUSPIRONE HCL 10 MG TABLET 1 TABLET ORALLY THREE TIMES A DAY, NOTES: 10-07-16699 TAKING DILTIAZEM HCL 240 MG TABLET ORALLY DAILY, NOTES: 10-07-16699 TAKING FLUTICASONE PROPIONATE 50 MCG/ACT SUSPENSION 1 SPRAY IN EACH NOSTRIL NASALLY ONCE A DAY, NOTES: NONE TAKING LISINOPRIL 10 MG TABLET 1 TABLET ORALLY ONCE A DAY, NOTES: 10-07-16699 TAKING PRADAXA 150 MG TABLET P.O. BID, NOTES: 10-03-16 TAKING SPIRIVA HANDIHALER ONCE DAILY, NOTES: 10-07-16699 TAKING CRESTOR 10 MG TABLET ORALLY ONCE DAILY, NOTES: 10-06-162099 TAKING DIGOXIN 125 MCG TABLET 1 TABLET ORALLY ONCE A DAY, NOTES: 10-07-16699 TAKING FINASTERIDE 5 MG TABLET 1 TABLET ORALLY ONCE A DAY, NOTES: 10-06-162099 TAKING BREO ELLIPTA 100-25 MCG/INH AEROSOL POWDER BREATH ACTIVATED 1 PUFF INHALATION ONCE A DAY, NOTES: 10-07-16699 TAKING ASPIR-81 81 MG TABLET DELAYED RELEASE 1 TABLET ORALLY ONCE A DAY, NOTES: 10-03-16 TAKING VOLTAREN 1 % GEL DIRECTED TRANSDERMAL 4 GMSFOUR TIMES DAILY TO KNEE/BACK, NOTES: NONE TAKING CITALOPRAM HYDROBROMIDE 40 MG TABLET 1 TAB ORALLY ONCE A DAY, NOTES: 10-07-16699 TAKING HALDOL 5MG TABLET 1 -2MG TAB ORAL DAILY, NOTES: 10-07-16699 TAKING ALBUTEROL 90 MCG/ACT AEROSOL SOLUTION INHALATION TAKING PROTONIX 40 MG TABLET DELAYED RELEASE 1 TABLET ORALLY ONCE A DAY TAKING CYCLOBENZAPRINE HCL 10 MG TABLET 1 TABLET ORALLY THREE TIMES A DAY TAKING LYRICA 200 MG CAPSULE 1 CAPSULE ORALLY THREE TIMES DAILY MDD=3 TAKING FENTANYL 12 MCG/HR PATCH 72 HOUR 1 PATCH TO SKIN TRANSDERMAL APPLY 1 PATCH TO SKIN EVERY 72 HOURS MDD=1 TAKING PERCOCET 10-325 MG TABLET 1 TABLET NEEDED ORALLY Q 8-12 HRS PRN PAIN MDD=2 NOT-TAKING TERBINAFINE HCL 250 MG TABLET 1 TABLET ORALLY ONCE A DAY MEDICATION LIST REVIEWED AND RECONCILED WITH THE PATIENT PAST MEDICAL HISTORY LUPUS HYPERCHLOESTREMIA HTN HARD PROSTRATE RIDICULAR BACK PAIN A-FIB COPD ANXIETY BILATERAL CARPAL TUNNEL SYNDROME ALLERGIES BETA LUI (FOR ALLERGIES USE ONLY): DYSPNEA: ALLERGY ATORVASTATIN CALCIUM: JOINT PAIN: SIDE EFFECTS REVIEW OF SYSTEMS REVIEWED BY: PROVIDER: JADA HAMILTON . CONSTITUTIONAL: ANY CHANGE IN YOUR MEDICAL CONDITION? NO . CHILLS NO . FEVER NO . INFECTION: DO YOU HAVE NEW INFECTIONS? NO . DO YOU HAVE HISTORY OF MRSA? NO . MUSCULOSKELETAL: ANY NEW PATTERNS OF PAIN OR NUMBNESS? NO . GASTROENTEROLOGY: ANY NEW CHANGE IN BOWEL CONTROL? NO . GENITOURINARY: ANY NEW CHANGE IN BLADDER CONTROL? NO . IS THERE A CHANCE YOU COULD BE ? NO . HEMATOLOGY/LYMPH: DO YOU TAKE ANY BLOOD THINNERS? (FOR EXAMPLE- COUMADIN, PLAVIX, AGGRENOX, PLATEL, PRADAXA, OR XARELTO) YES PRADAXA TWICE DAILY . WHEN WAS YOUR LAST DOSE? DATE: TIME: 02-11-17629 . NEUROLOGY: HAVE YOU FALLEN IN THE PAST 6 MONTHS? NO . ANY NEW EXTREMITY NUMBNESS OR WEAKNESS? NO . CARDIOLOGY: DO YOU HAVE A PACEMAKER OR DEFIBRILLATOR? NO . RESPIRATORY: HAVE YOU BEEN SICK IN THE PAST WEEK? NO . FEVER NO . FLU LIKE SYMPTOMS? NO . COUGH NO . INTEGUMENTARY: DO YOU HAVE ANY RASHES OR OPEN SORES? NO . ALLERGIC/IMMUNO: ARE YOU ALLERGIC TO SHELLFISH OR IV DYE? NO . ANY NEW ALLERGIES? NO . PSYCHIATRIC: DO YOU HAVE THOUGHTS OF HURTING YOURSELF OR SOMEONE ELSE? NO . ARE YOU ABUSED, NEGLECTED, OR IN AN UNSAFE ENVIRONMENT? NO . ENDOCRINOLOGY: ARE YOU DIABETIC? NO . OTHER: DO YOU NEED ANY PRESCRIPTIONS? NO . IF YES, PLEASE LIST: ____ . ANY NEW PROBLEMS WITH YOUR MEDICATIONS? NO . WHEN DID YOU LAST EAT? ____ . WHEN DID YOU LAST DRINK? ____ . WHAT DID YOU LAST DRINK? ____ . NAME OF PERSON DRIVING YOU HOME? ____ . DO YOU HAVE ANY OTHER QUESTIONS OR CONCERNS NO . VITAL SIGNS WT 232.6 LBS, HT 72 IN, BMI 31.54 INDEX, BP 137/83 MM HG, HR 100 /MIN, RR 16 /MIN, TEMP 97 F, OXYGEN SAT % 96%, REVIEWED BY: JOSE L 1030. EXAMINATION GENERAL EXAMINATION: PSYCHALERT , ORIENTED X 3 , APPROPRIATE MOOD AND AFFECT , GOOD EYE CONTACT, TALKATIVE. LUNGS:CLEAR TO AUSCULTATION BILATERALLY. HEART:HEART RATE REGULAR. MUSCULOSKELETAL:MUSCLE STRENGTH TESTING 5/5 BILATERAL UPPER AND LOWER EXTREMITIES., PALPATION: TENDER POINTS IDENTIFIED OVER LUMBOSACRAL SXIS.. SLOW TO RISE TO STANDING POSITION. POINT TENDERNESS PRESENT OVER BILATERAL TROCANTERS. POSTURE STOOPED. GAIT WIDEBASED, MILDLY ANTALGIC . EXTREMITIES:WELL-HEALED INCISION AT RIGHT WRIST. SENSITIVITY NOTED ALONG THE INCISION. ABLE TO FLEX AND EXTEND THE FINGERS WITHOUT DIFFICULTY. SENSATION IMPROVED IN THE THUMB FIRST AND SECOND FINGER.. ASSESSMENTS LUMBAR RADICULAR PAIN - M54.16 (PRIMARY) TROCHANTERIC BURSITIS, RIGHT HIP - M70.61 TROCHANTERIC BURSITIS OF LEFT HIP - M70.62 PRIMARY OSTEOARTHRITIS, UNSPECIFIED SITE - M19.91 TREATMENT LUMBAR RADICULAR PAIN REFILL FENTANYL PATCH 72 HOUR, 25 MCG/HR, 1 PATCH TO SKIN, TRANSDERMAL, APPLY 1 PATCH TO SKIN EVERY 72 HOURS MDD=1, 30 DAY(S), 10, REFILLS 0 REFILL LYRICA CAPSULE, 200 MG, 1 CAPSULE, ORALLY, THREE TIMES DAILY MDD=3, 30 DAY(S), 90, REFILLS 2 INJECTION FACET JOINT/NERVE LUMBAR/SACRALWALJADA BHATT 02/11/2017 10:42:59 AM > BILATERAL THERAPEUTIC LUMBAR FACET L4-5, L5-S1 ON PRADAXA NOTES: UTOX TODAY. HOLD PRADAXA DAY BEFORE AND DAY AFTER INJECTION,FACET JOINT INJECTION MATERIAL WAS PRINTED. CLINICAL NOTES: ISTOP REGISTRY REVIEWED AND DEMNOSTRATES COMPLLIANCE. BRINGS IN MEDICATIONS WHICH IS APPROPRIATE FOR WHAT WAS DISPENSED. RECENT URINE TOXICOLOGY REVIEWED. NO UNAUTHORIZED MEDICATIONS. PROCEDURE CODES FA211 ESTABILISHED PATIENT [facility] FACILITY CHARGE G8730 PAIN ASSESS POS TOOL F/U PLAN DOC G8427 DOC MEDS VERIFIED W/PT OR RE DISPOSITION & COMMUNICATION FOLLOW UP 26-28 DAYS (REASON: CHECK AUTH FOR BILATERAL THERAPEUTIC L4-5, L5-S1 LUMBAR FACET BLOCK) ELECTRONICALLY SIGNED BY AMADOR SANDRA ON 03/07/2017 AT 11:32 AM EDT DISCLAIMER : THIS IS A VISIT SUMMARY EXTRACTED FROM THE [employer] CHART. IT IS NOT A COPY OF THE [employer] PROGRESS NOTE. MTDD
== END ==
LOC: M PAIN 10:00
PROVIDERS: ATTEND Nurse Practitioner Family
DX: G89.29 Other chronic pain (principal); M54.16 Radiculopathy, lumbar region; M70.61 Trochanteric bursitis, right hip; M70.62 Trochanteric bursitis, left hip; M19.91 Primary osteoarthritis, unspecified site; M32.9 Systemic lupus erythematosus, unspecified; E78.00 Pure hypercholesterolemia, unspecified; I10 Essential (primary) hypertension; I48.91 Unspecified atrial fibrillation; J44.9 Chronic obstructive pulmonary disease, unspecified; F41.9 Anxiety disorder, unspecified; Z88.8 Allergy status to other drugs, medicaments and biological substances; Z79.01 Long term (current) use of anticoagulants; Z79.82 Long term (current) use of aspirin; Z79.891 Long term (current) use of opiate analgesic; Z79.899 Other long term (current) drug therapy

== ENCOUNTER → 2017-02-25 | Outpatient (CLI) | payer MEDICARE, MEDICAID ==
[~2017-02-25] MED LIST changes: +BUPIVACAINE HCL 0.25% 10 ML VIAL As Ordered ONE; +BUPIVACAINE HCL 0.25% 30 ML VIAL As Ordered ONE; +TRIAMCINOLONE ACETONIDE SUSP 40 MG/ML VIAL (J3301) As Ordered ONE; +diazePAM 5 MG TAB As Ordered ONE; +oxyCODONE 5MG TAB As Ordered ONE
--- NOTE | 2017-03-14 23:45 | ECWPNPC ---
PATIENT NAME: SHEEBA PAT : 1955 GENDER: MALE VISIT DATE: 02/25/2017 DISCHARGE DATE: 02/25/17 1358 VISIT LOCKED DATE TIME: PHYSICIAN: KAL SELLERS RESOURCE: KAL SELLERS REASON FOR APPOINTMENT 1. TRIGGER POINT BILATERAL LOWER BACK HISTORY OF PRESENT ILLNESS HISTORY OF PRESENT ILLNESS: PAIN THE PATIENT DESCRIBES THE PAIN... FALL RISK SCREENING: SCREENING :NO FALLS IN THE PAST YEAR CURRENT MEDICATIONS TAKING COMBIVENT 18-103 MCG/ACT AEROSOL 2 PUFFS INHALATION FOUR TIMES DAILY NEEDED, NOTES: 3 DAYS AGO TAKING BUSPIRONE HCL 10 MG TABLET 1 TABLET ORALLY THREE TIMES A DAY, NOTES: 0530 TAKING DILTIAZEM HCL 240 MG TABLET ORALLY DAILY, NOTES: 0530 TAKING FLUTICASONE PROPIONATE 50 MCG/ACT SUSPENSION 1 SPRAY IN EACH NOSTRIL NASALLY ONCE A DAY, NOTES: NONE TAKING LISINOPRIL 10 MG TABLET 1 TABLET ORALLY ONCE A DAY, NOTES: 0530 TAKING PRADAXA 150 MG TABLET P.O. BID, NOTES: 02/23/17@1999 TAKING SPIRIVA HANDIHALER ONCE DAILY, NOTES: 02/24/17@0900 TAKING CRESTOR 10 MG TABLET ORALLY ONCE DAILY, NOTES: 02/24/17 TAKING DIGOXIN 125 MCG TABLET 1 TABLET ORALLY ONCE A DAY, NOTES: 0530 TAKING FINASTERIDE 5 MG TABLET 1 TABLET ORALLY ONCE A DAY, NOTES: 0530 TAKING BREO ELLIPTA 100-25 MCG/INH AEROSOL POWDER BREATH ACTIVATED 1 PUFF INHALATION ONCE A DAY, NOTES: 02/24/17@0900 TAKING ASPIR-81 81 MG TABLET DELAYED RELEASE 1 TABLET ORALLY ONCE A DAY, NOTES: 0530 TAKING VOLTAREN 1 % GEL DIRECTED TRANSDERMAL 4 GMSFOUR TIMES DAILY TO KNEE/BACK, NOTES: NONE TAKING CITALOPRAM HYDROBROMIDE 40 MG TABLET 1 TAB ORALLY ONCE A DAY, NOTES: 0530 TAKING HALDOL 5MG TABLET 1 -2MG TAB ORAL DAILY, NOTES: 0530 TAKING PROTONIX 40 MG TABLET DELAYED RELEASE 1 TABLET ORALLY ONCE A DAY, NOTES: 0530 TAKING CYCLOBENZAPRINE HCL 10 MG TABLET 1 TABLET ORALLY THREE TIMES A DAY, NOTES: 0530 TAKING ALBUTEROL 90 MCG/ACT AEROSOL SOLUTION INHALATION , NOTES: 1 MONTH AGO TAKING PERCOCET 10-325 MG TABLET 1 TABLET NEEDED ORALLY Q 8-12 HRS PRN PAIN MDD=2, NOTES: 02/24/17 TAKING FENTANYL 25 MCG/HR PATCH 72 HOUR 1 PATCH TO SKIN TRANSDERMAL APPLY 1 PATCH TO SKIN EVERY 72 HOURS MDD=1, NOTES: 02/25/17 TAKING LYRICA 200 MG CAPSULE 1 CAPSULE ORALLY THREE TIMES DAILY MDD=3, NOTES: 0530 NOT-TAKING TERBINAFINE HCL 250 MG TABLET 1 TABLET ORALLY ONCE A DAY MEDICATION LIST REVIEWED AND RECONCILED WITH THE PATIENT PAST MEDICAL HISTORY LUPUS HYPERCHLOESTREMIA HTN HARD PROSTRATE RIDICULAR BACK PAIN A-FIB COPD ANXIETY BILATERAL CARPAL TUNNEL SYNDROME ALLERGIES BETA LUI (FOR ALLERGIES USE ONLY): DYSPNEA: ALLERGY ATORVASTATIN CALCIUM: JOINT PAIN: SIDE EFFECTS REVIEW OF SYSTEMS REVIEWED BY: PROVIDER: . CONSTITUTIONAL: ANY CHANGE IN YOUR MEDICAL CONDITION? NO . CHILLS NO . FEVER NO . INFECTION: DO YOU HAVE NEW INFECTIONS? NO . DO YOU HAVE HISTORY OF MRSA? NO . MUSCULOSKELETAL: ANY NEW PATTERNS OF PAIN OR NUMBNESS? NO . GASTROENTEROLOGY: ANY NEW CHANGE IN BOWEL CONTROL? NO . GENITOURINARY: ANY NEW CHANGE IN BLADDER CONTROL? NO . IS THERE A CHANCE YOU COULD BE ? NO . HEMATOLOGY/LYMPH: DO YOU TAKE ANY BLOOD THINNERS? (FOR EXAMPLE- COUMADIN, PLAVIX, AGGRENOX, PLATEL, PRADAXA, OR XARELTO) NO . WHEN WAS YOUR LAST DOSE? DATE: TIME: . NEUROLOGY: HAVE YOU FALLEN IN THE PAST 6 MONTHS? NO . ANY NEW EXTREMITY NUMBNESS OR WEAKNESS? NO . CARDIOLOGY: DO YOU HAVE A PACEMAKER OR DEFIBRILLATOR? NO . RESPIRATORY: HAVE YOU BEEN SICK IN THE PAST WEEK? NO . FEVER NO . FLU LIKE SYMPTOMS? NO . COUGH NO . INTEGUMENTARY: DO YOU HAVE ANY RASHES OR OPEN SORES? NO . ALLERGIC/IMMUNO: ARE YOU ALLERGIC TO SHELLFISH OR IV DYE? NO . ANY NEW ALLERGIES? NO . PSYCHIATRIC: DO YOU HAVE THOUGHTS OF HURTING YOURSELF OR SOMEONE ELSE? NO . ARE YOU ABUSED, NEGLECTED, OR IN AN UNSAFE ENVIRONMENT? NO . ENDOCRINOLOGY: ARE YOU DIABETIC? NO . OTHER: DO YOU NEED ANY PRESCRIPTIONS? NO . IF YES, PLEASE LIST: ____ . ANY NEW PROBLEMS WITH YOUR MEDICATIONS? NO . WHEN DID YOU LAST EAT? ____0600 . WHEN DID YOU LAST DRINK? ____0600 . WHAT DID YOU LAST DRINK? ____COFFEE . NAME OF PERSON DRIVING YOU HOME? ____[facility] . DO YOU HAVE ANY OTHER QUESTIONS OR CONCERNS NO . VITAL SIGNS WT 235.0 LBS, HT 72 IN, BMI 31.87 INDEX, BP 106/66 MM HG, HR 100 /MIN, RR 18 /MIN, TEMP 96.4 F, OXYGEN SAT % 96%, NA INITIALS TL 1059, REVIEWED BY: VD. ASSESSMENTS MYALGIA - M79.1 (PRIMARY) PROCEDURES PN TRIGGER POINT INJECTION WITH STEROIDS PRE PROCEDURE DIAGNOSIS 1. MYALGIA 2. PAIN AT BILATERAL LOWER BACK POST PROCEDURE DIAGNOSIS 1. MYALGIA 2. PAIN AT BILATERAL LOWER BACK PROCEDURE TRIGGER POINT INJECTION AT BILATERAL LOWER BACK SURGEON DR. KAL SELLERS REAL ESTATE DEVELOPMENT MANAGER NONE ANESTHESIA LOCAL PRE PROCEDURE NOTE THE PATIENT HAS A HISTORY OF CHRONIC PAIN AT THE RIGHT AND LEFT LOWER BACK AREA. I EVALUATE THE PATIENT AND REVIEWED THE CHART. THERE IS EVIDENCE OF BANDS OF TISSUE WITH RESTRICTION OF MOVEMENT AND PRESENCE OF TRIGGER POINT AT THE AFFECTED AREA. I WENT OVER THE RISKS, ALTERNATIVES, AND BENEFITS ASSOCIATED WITH THIS PROCEDURE. THE PATIENT WOULD LIKE TO PROCEED AND GIVE CONSENT TO PERFORMED THE PROCEDURE. THE PATIENT DENIES UNEXPLAINABLE WEIGHT LOSS, FEVER, CHILLS, OR NEW CHANGES IN URINARY OR BOWEL CONTROL DESCRIPTION OF PROCEDURE THE PATIENT WAS BROUGHT TO THE PROCEDURE ROOM AND PLACED IN THE SITTING POSITION. THE AREA WAS CLEANED WITH ALCOHOL. THE PROCEDURE WAS DONE USING [employer] STERILE TECHNIQUE. I CHECKED LATERALITY AND THE LEVEL WHERE THE PROCEDURE WAS GOING TO BE PERFORMED WITH THE PATIENT AND THE SUPPORTING STAFF AT THE MOMENT OF THE TIME OUT IN THE PROCEDURE ROOM. USING A 25-GAUGE NEEDLE, TRIGGER POINTS WERE INJECTED AT THE RIGHT AND LEFT LOWER BACK AREA WITH A TOTAL OF 40 ML OF BUPIVACAINE 0.25% AND KENALOG 40 MG. THERE WAS NO EVIDENCE OF BLOOD, PARESTHESIA OR CEREBROSPINAL FLUID DURING THE PROCEDURE. THE PATIENT WAS SENT TO THE RECOVERY ROOM. THE PATIENT WAS MOVING THE EXTREMITIES AND DOING WELL. THERE WAS NO COMPLICATION DURING THE PROCEDURE POST PROCEDURE NOTE THE PATIENT WILL BE SEEN IN A FOLLOW UP IN THE NEXT FEW WEEKS. INSTRUCTIONS WERE GIVEN, QUESTIONS WERE ANSWERED, AND THE PATIENT EXPRESSED UNDERSTANDING AND AGREES WITH THE PLAN. I, AUNDREA SIMON, DOCUMENTED THE ABOVE INFORMATION ACTING A SCRIBE FOR DR. SELLERS. I, DR. SELLERS, HAVE REVIEWED THE ABOVE DOCUMENT, SCRIBED BY AUNDREA SIMON, AND I VERIFY THAT IT IS ACCURATE. DIAGNOSTIC IMAGING [facility] FACET BLOCK (PAIN)[id number] PROCEDURE CODES 88853 INJ TRIGGER POINT 1/2 MUSCL DISPOSITION & COMMUNICATION FOLLOW UP 3 WEEKS ELECTRONICALLY SIGNED BY KAL SELLERS MD ON 03/14/2017 AT 07:58 AM EDT DISCLAIMER : THIS IS A VISIT SUMMARY EXTRACTED FROM THE [employer] CHART. IT IS NOT A COPY OF THE [employer] PROGRESS NOTE. MTDD
== END ==
LOC: M PAIN 11:00
PROVIDERS: ATTEND Anesthesiology
DX: G89.29 Other chronic pain (principal); M79.1 Myalgia; M32.9 Systemic lupus erythematosus, unspecified; E78.00 Pure hypercholesterolemia, unspecified; I10 Essential (primary) hypertension; I48.91 Unspecified atrial fibrillation; J44.9 Chronic obstructive pulmonary disease, unspecified; F41.9 Anxiety disorder, unspecified; G56.03 Carpal tunnel syndrome, bilateral upper limbs; Z79.01 Long term (current) use of anticoagulants; Z79.82 Long term (current) use of aspirin; Z79.891 Long term (current) use of opiate analgesic; Z79.899 Other long term (current) drug therapy; Z88.8 Allergy status to other drugs, medicaments and biological substances
CPT/HCPCS: 20552; J3301

== ENCOUNTER → 2017-03-31 | Outpatient (CLI) | payer MEDICARE, MEDICAID ==
[~2017-03-31] MED LIST changes: -BUPIVACAINE HCL 0.25% 10 ML VIAL As Ordered ONE; -BUPIVACAINE HCL 0.25% 30 ML VIAL As Ordered ONE; -TRIAMCINOLONE ACETONIDE SUSP 40 MG/ML VIAL (J3301) As Ordered ONE; -diazePAM 5 MG TAB As Ordered ONE; -oxyCODONE 5MG TAB As Ordered ONE
--- NOTE | 2017-04-16 00:22 | ECWPNPC ---
PATIENT NAME: SHEEBA PAT : 1955 GENDER: MALE VISIT DATE: 03/31/2017 DISCHARGE DATE: 03/31/17 1456 VISIT LOCKED DATE TIME: PHYSICIAN: JADA MANSFIELD RESOURCE: JADA MANSFIELD REASON FOR APPOINTMENT 1. BACK AND KNEES HISTORY OF PRESENT ILLNESS HISTORY OF PRESENT ILLNESS: PAIN THE PATIENT DESCRIBES THE PAIN... FALL RISK SCREENING: SCREENING :NO FALLS IN THE PAST YEAR TODAY'S VISIT: NOTES: S/P LEFT CTS RELEASE . NOTES MARKED IMPROVEMENT IN WRIST PAIN AND NUMBNESS IN THE LEFT HAND. REPORTS AREA IS HEALING WELL. REPORTS BILATERAL COMFORT AT HIPS. IS S/P TPI TO LOW BACK 02/25/17 WITH50% IMPROVEMENT. NOTES WAS BETTER ABLE TO STAND, WALK AND MOVE ABOUT. . CURRENT MEDICATIONS TAKING COMBIVENT 18-103 MCG/ACT AEROSOL 2 PUFFS INHALATION FOUR TIMES DAILY NEEDED TAKING BUSPIRONE HCL 10 MG TABLET 1 TABLET ORALLY THREE TIMES A DAY TAKING DILTIAZEM HCL 240 MG TABLET ORALLY DAILY TAKING FLUTICASONE PROPIONATE 50 MCG/ACT SUSPENSION 1 SPRAY IN EACH NOSTRIL NASALLY ONCE A DAY TAKING LISINOPRIL 10 MG TABLET 1 TABLET ORALLY ONCE A DAY TAKING PRADAXA 150 MG TABLET P.O. BID TAKING SPIRIVA HANDIHALER ONCE DAILY TAKING CRESTOR 10 MG TABLET ORALLY ONCE DAILY TAKING DIGOXIN 125 MCG TABLET 1 TABLET ORALLY ONCE A DAY TAKING FINASTERIDE 5 MG TABLET 1 TABLET ORALLY ONCE A DAY TAKING BREO ELLIPTA 100-25 MCG/INH AEROSOL POWDER BREATH ACTIVATED 1 PUFF INHALATION ONCE A DAY TAKING ASPIR-81 81 MG TABLET DELAYED RELEASE 1 TABLET ORALLY ONCE A DAY TAKING VOLTAREN 1 % GEL DIRECTED TRANSDERMAL 4 GMSFOUR TIMES DAILY TO KNEE/BACK TAKING CITALOPRAM HYDROBROMIDE 40 MG TABLET 1 TAB ORALLY ONCE A DAY TAKING HALDOL 5MG TABLET 1 -2MG TAB ORAL DAILY TAKING PROTONIX 40 MG TABLET DELAYED RELEASE 1 TABLET ORALLY ONCE A DAY TAKING CYCLOBENZAPRINE HCL 10 MG TABLET 1 TABLET ORALLY THREE TIMES A DAY TAKING ALBUTEROL 90 MCG/ACT AEROSOL SOLUTION INHALATION TAKING PERCOCET 10-325 MG TABLET 1 TABLET NEEDED ORALLY Q 8-12 HRS PRN PAIN MDD=2 TAKING LYRICA 200 MG CAPSULE 1 CAPSULE ORALLY THREE TIMES DAILY MDD=3 TAKING FENTANYL 25 MCG/HR PATCH 72 HOUR 1 PATCH TO SKIN TRANSDERMAL APPLY 1 PATCH TO SKIN EVERY 72 HOURS MDD=1 TAKING PERCOCET 10-325 MG TABLET 1 TABLET NEEDED ORALLY EVERY 6 HRS PRN PAIN MDD=2 NOT-TAKING TERBINAFINE HCL 250 MG TABLET 1 TABLET ORALLY ONCE A DAY MEDICATION LIST REVIEWED AND RECONCILED WITH THE PATIENT PAST MEDICAL HISTORY LUPUS HYPERCHLOESTREMIA HTN HARD PROSTRATE RIDICULAR BACK PAIN A-FIB COPD ANXIETY BILATERAL CARPAL TUNNEL SYNDROME ALLERGIES BETA LUI (FOR ALLERGIES USE ONLY): DYSPNEA: ALLERGY ATORVASTATIN CALCIUM: JOINT PAIN: SIDE EFFECTS SURGICAL HISTORY RIGHT WRIST REPAIR 1979 LEFT ARM REPAIR 1984 RIGHT CARPAL TUNNEL REPAIR 08/12/16 LEFT CARPAL TUNNEL RELEASE 03/2017 HOSPITALIZATION/MAJOR DIAGNOSTIC PROCEDURE SURGERY RELATED REVIEW OF SYSTEMS REVIEWED BY: PROVIDER: JADA HAMILTON . CONSTITUTIONAL: ANY CHANGE IN YOUR MEDICAL CONDITION? NO . CHILLS NO . FEVER NO . INFECTION: DO YOU HAVE NEW INFECTIONS? YES, HEAD AND CHEST COLD . DO YOU HAVE HISTORY OF MRSA? NO . MUSCULOSKELETAL: ANY NEW PATTERNS OF PAIN OR NUMBNESS? NO . GASTROENTEROLOGY: ANY NEW CHANGE IN BOWEL CONTROL? NO . GENITOURINARY: ANY NEW CHANGE IN BLADDER CONTROL? NO . IS THERE A CHANCE YOU COULD BE ? NO . HEMATOLOGY/LYMPH: DO YOU TAKE ANY BLOOD THINNERS? (FOR EXAMPLE- COUMADIN, PLAVIX, AGGRENOX, PLATEL, PRADAXA, OR XARELTO) YES, PRADAXA . WHEN WAS YOUR LAST DOSE? DATE: TIME: . NEUROLOGY: HAVE YOU FALLEN IN THE PAST 6 MONTHS? NO . ANY NEW EXTREMITY NUMBNESS OR WEAKNESS? NO . CARDIOLOGY: DO YOU HAVE A PACEMAKER OR DEFIBRILLATOR? NO . RESPIRATORY: HAVE YOU BEEN SICK IN THE PAST WEEK? NO . FEVER NO . FLU LIKE SYMPTOMS? NO . COUGH NO . INTEGUMENTARY: DO YOU HAVE ANY RASHES OR OPEN SORES? NO . ALLERGIC/IMMUNO: ARE YOU ALLERGIC TO SHELLFISH OR IV DYE? NO . ANY NEW ALLERGIES? NO . PSYCHIATRIC: DO YOU HAVE THOUGHTS OF HURTING YOURSELF OR SOMEONE ELSE? NO . ARE YOU ABUSED, NEGLECTED, OR IN AN UNSAFE ENVIRONMENT? NO . ENDOCRINOLOGY: ARE YOU DIABETIC? NO . OTHER: DO YOU NEED ANY PRESCRIPTIONS? NO . IF YES, PLEASE LIST: ____ . ANY NEW PROBLEMS WITH YOUR MEDICATIONS? NO . WHEN DID YOU LAST EAT? ____ . WHEN DID YOU LAST DRINK? ____ . WHAT DID YOU LAST DRINK? ____ . NAME OF PERSON DRIVING YOU HOME? ____ . DO YOU HAVE ANY OTHER QUESTIONS OR CONCERNS NO . VITAL SIGNS WT 228 LBS, HT 72 IN, BMI 30.92 INDEX, BP 118/71 MM HG, HR 89 /MIN, RR 16 /MIN, TEMP 96.5 F, OXYGEN SAT % 95, REVIEWED BY: MARIEL. EXAMINATION GENERAL EXAMINATION: PSYCHALERT , ORIENTED X 3 , APPROPRIATE MOOD AND AFFECT , GOOD EYE CONTACT, TALKATIVE. LUNGS:CLEAR TO AUSCULTATION BILATERALLY. HEART:HEART RATE REGULAR. MUSCULOSKELETAL:MUSCLE STRENGTH TESTING 5/5 BILATERAL UPPER AND LOWER EXTREMITIES., PALPATION: TENDER POINTS IDENTIFIED OVER LUMBOSACRAL AXIS.. SLOW TO RISE TO STANDING POSITION. POINT TENDERNESS PRESENT OVER BILATERAL TROCANTERS. POSTURE STOOPED. GAIT WIDEBASED, MILDLY ANTALGIC . ASSESSMENTS MYALGIA - M79.1 (PRIMARY) LUMBAR RADICULAR PAIN - M54.16 SYSTEMIC LUPUS ERYTHEMATOSUS, UNSPECIFIED SLE TYPE, UNSPECIFIED ORGAN INVOLVEMENT STATUS - M32.9 TREATMENT MYALGIA REFILL PERCOCET TABLET, 10-325 MG, 1 TABLET NEEDED, ORALLY, Q 8-12 HRS PRN PAIN MDD=2, 30 DAY(S), 60, REFILLS 0 REFILL FENTANYL PATCH 72 HOUR, 50 MCG/HR, 1 PATCH TO SKIN, TRANSDERMAL, APPLY 1 PATCH TO SKIN EVERY 72 HOURS MDD=1, 30 DAY(S), 10, REFILLS 0 NOTES: CONTINUE CURRENT MEDS. WALK DAILY. DO NOT SIT FOR LONG PERIODS OF TIME. CLINICAL NOTES: ISTOP REGISTRY REVIEWED AND DEMNOSTRATES COMPLLIANCE. BRINGS IN MEDICATIONS WHICH IS APPROPRIATE FOR WHAT WAS DISPENSED. RECENT URINE TOXICOLOGY REVIEWED. NO UNAUTHORIZED MEDICATIONS. NO ILLICIT COCAINE, UNEXPECTED OPIATES OR AMPHETAMINES SUBSTANCES AND PRESCRIBED MEDICATIONS WERE PRESENT. REFERRAL TO:[facility] REASON:LUPUS, JOINT PAIN PROCEDURE CODES FA211 ESTABILISHED PATIENT [facility] FACILITY CHARGE G8730 PAIN ASSESS POS TOOL F/U PLAN DOC G8427 DOC MEDS VERIFIED W/PT OR RE DISPOSITION & COMMUNICATION FOLLOW UP 7 WEEKS (REASON: BACK/JOINT PAIN) ELECTRONICALLY SIGNED BY AMADOR SANDRA ON 04/15/2017 AT 05:29 PM EDT DISCLAIMER : THIS IS A VISIT SUMMARY EXTRACTED FROM THE [employer] CHART. IT IS NOT A COPY OF THE [employer] PROGRESS NOTE. MTDD
== END ==
LOC: M PAIN 13:45
PROVIDERS: ATTEND Nurse Practitioner Family
DX: G89.29 Other chronic pain (principal); M79.1 Myalgia; M54.16 Radiculopathy, lumbar region; M32.9 Systemic lupus erythematosus, unspecified; E78.00 Pure hypercholesterolemia, unspecified; I10 Essential (primary) hypertension; I48.91 Unspecified atrial fibrillation; J44.9 Chronic obstructive pulmonary disease, unspecified; F41.9 Anxiety disorder, unspecified; Z79.891 Long term (current) use of opiate analgesic; Z79.899 Other long term (current) drug therapy; Z79.82 Long term (current) use of aspirin; Z79.01 Long term (current) use of anticoagulants; Z88.8 Allergy status to other drugs, medicaments and biological substances

== ENCOUNTER → 2017-05-26 | Outpatient (CLI) | payer MEDICARE, MEDICAID ==
--- NOTE | 2017-06-21 00:54 | ECWPNPC ---
PATIENT NAME: SHEEBA PAT : 1955 GENDER: MALE VISIT DATE: 05/26/2017 DISCHARGE DATE: 05/26/17 1019 VISIT LOCKED DATE TIME: PHYSICIAN: JADA MANSFIELD RESOURCE: JADA MANSFIELD REASON FOR APPOINTMENT 1. BACK/JOINT PAIN HISTORY OF PRESENT ILLNESS HISTORY OF PRESENT ILLNESS: PAIN THE PATIENT DESCRIBES THE PAIN... FALL RISK SCREENING: SCREENING :NO FALLS IN THE PAST YEAR TODAY'S VISIT: NOTES: RATES PAIN TODAY 02/08. STATES TODAY IS A BAD DAY - NOTES HIPS ARE VERY PAINFUL AND IS HAVING TROUBLE WALKING AND STANDING. . CURRENT MEDICATIONS TAKING COMBIVENT 18-103 MCG/ACT AEROSOL 2 PUFFS INHALATION FOUR TIMES DAILY NEEDED TAKING BUSPIRONE HCL 10 MG TABLET 1 TABLET ORALLY THREE TIMES A DAY TAKING DILTIAZEM HCL 240 MG TABLET ORALLY DAILY TAKING FLUTICASONE PROPIONATE 50 MCG/ACT SUSPENSION 1 SPRAY IN EACH NOSTRIL NASALLY ONCE A DAY TAKING LISINOPRIL 10 MG TABLET 1 TABLET ORALLY ONCE A DAY TAKING PRADAXA 150 MG TABLET P.O. BID TAKING SPIRIVA HANDIHALER ONCE DAILY TAKING CRESTOR 10 MG TABLET ORALLY ONCE DAILY TAKING DIGOXIN 125 MCG TABLET 1 TABLET ORALLY ONCE A DAY TAKING FINASTERIDE 5 MG TABLET 1 TABLET ORALLY ONCE A DAY TAKING BREO ELLIPTA 100-25 MCG/INH AEROSOL POWDER BREATH ACTIVATED 1 PUFF INHALATION ONCE A DAY TAKING ASPIR-81 81 MG TABLET DELAYED RELEASE 1 TABLET ORALLY ONCE A DAY TAKING VOLTAREN 1 % GEL DIRECTED TRANSDERMAL 4 GMSFOUR TIMES DAILY TO KNEE/BACK TAKING CITALOPRAM HYDROBROMIDE 40 MG TABLET 1 TAB ORALLY ONCE A DAY TAKING HALDOL 5MG TABLET 1 -2MG TAB ORAL DAILY TAKING PROTONIX 40 MG TABLET DELAYED RELEASE 1 TABLET ORALLY ONCE A DAY TAKING ALBUTEROL 90 MCG/ACT AEROSOL SOLUTION INHALATION TAKING LYRICA 200 MG CAPSULE 1 CAPSULE ORALLY THREE TIMES DAILY MDD=3 TAKING PERCOCET 10-325 MG TABLET 1 TABLET NEEDED ORALLY EVERY 6 HRS PRN PAIN MDD=2 TAKING CYCLOBENZAPRINE HCL 10 MG TABLET 1 TABLET ORALLY THREE TIMES A DAY TAKING FENTANYL 50 MCG/HR PATCH 72 HOUR 1 PATCH TO SKIN TRANSDERMAL APPLY 1 PATCH TO SKIN EVERY 72 HOURS MDD=1 TAKING TERBINAFINE HCL 250 MG TABLET 1 TABLET ORALLY ONCE A DAY NOT-TAKING PERCOCET 10-325 MG TABLET 1 TABLET NEEDED ORALLY Q 8-12 HRS PRN PAIN MDD=2 MEDICATION LIST REVIEWED AND RECONCILED WITH THE PATIENT PAST MEDICAL HISTORY LUPUS HYPERCHLOESTREMIA HTN HARD PROSTRATE RIDICULAR BACK PAIN A-FIB COPD ANXIETY BILATERAL CARPAL TUNNEL SYNDROME ALLERGIES BETA LUI (FOR ALLERGIES USE ONLY): DYSPNEA: ALLERGY ATORVASTATIN CALCIUM: JOINT PAIN: SIDE EFFECTS SURGICAL HISTORY RIGHT WRIST REPAIR 1979 LEFT ARM REPAIR 1984 RIGHT CARPAL TUNNEL REPAIR 08/12/16 LEFT CARPAL TUNNEL RELEASE 03/2017 SOCIAL HISTORY GENERAL: TOBACCO USE ARE YOU A:CURRENT SMOKER PATIENT COUNSELED ON THE DANGERS OF TOBACCO USE AND URGED TO QUIT:12/24/2016 ARE YOU INTERESTED IN QUITTING?THINKING ABOUT QUITTING COUNSELED THE PATIENT ON SMOKING CESSATION, EDUCATION [id number]/25/2017 ALCOHOL SCREENING POINTS: 0, INTERPRETATION: NEGATIVE. RECREATIONAL DRUG USE DRUG USE?NO LEARNING BARRIERS / SPECIAL NEEDS ABILITY TO UNDERSTAND VERBAL INSTRUCTIONS AVERAGE, ABILITY TO UNDERSTAND WRITTEN INSTRUCTIONS AVERAGE, MORAVIAN? NO, LEARNING PREFERENCE NO PREFERENCE, PAIN MANAGEMENT PATIENT. PAIN CLINIC PFS, CLERGY, PUBLIC HEALTH REFERRALS HAS THE PATIENT BEEN EDUCATED REGARDING HIS/HER PLAN OF CARE?YES HAS THE PATIENT BEEN EDUCATED REGARDING PAIN, THE RISK FOR PAIN, THE IMPORTANCE OF EFFECTIVE PAIN MANAGEMENT, AND THE PAIN ASSESSMENT PROCESS?YES [facility]ANCE DIRECTIVES HEALTH CARE PROXY?NO POWER OF CONTROLLER REPAIRER AND TESTER?NO CURRENT SMOKER, DOWN TO 3 CIGS/DAY. HOSPITALIZATION/MAJOR DIAGNOSTIC PROCEDURE SURGERY RELATED REVIEW OF SYSTEMS REVIEWED BY: PROVIDER: JADA HAMILTON . CONSTITUTIONAL: ANY CHANGE IN YOUR MEDICAL CONDITION? NO . CHILLS NO . FEVER NO . INFECTION: DO YOU HAVE NEW INFECTIONS? NO . DO YOU HAVE HISTORY OF MRSA? NO . MUSCULOSKELETAL: ANY NEW PATTERNS OF PAIN OR NUMBNESS? NO . GASTROENTEROLOGY: ANY NEW CHANGE IN BOWEL CONTROL? NO . GENITOURINARY: ANY NEW CHANGE IN BLADDER CONTROL? NO . IS THERE A CHANCE YOU COULD BE ? NO . HEMATOLOGY/LYMPH: DO YOU TAKE ANY BLOOD THINNERS? (FOR EXAMPLE- COUMADIN, PLAVIX, AGGRENOX, PLATEL, PRADAXA, OR XARELTO) NO . WHEN WAS YOUR LAST DOSE? DATE: TIME: . NEUROLOGY: HAVE YOU FALLEN IN THE PAST 6 MONTHS? NO . ANY NEW EXTREMITY NUMBNESS OR WEAKNESS? NO . CARDIOLOGY: DO YOU HAVE A PACEMAKER OR DEFIBRILLATOR? NO . RESPIRATORY: HAVE YOU BEEN SICK IN THE PAST WEEK? NO . FEVER NO . FLU LIKE SYMPTOMS? NO . COUGH NO . INTEGUMENTARY: DO YOU HAVE ANY RASHES OR OPEN SORES? NO . ALLERGIC/IMMUNO: ARE YOU ALLERGIC TO SHELLFISH OR IV DYE? NO . ANY NEW ALLERGIES? NO . PSYCHIATRIC: DO YOU HAVE THOUGHTS OF HURTING YOURSELF OR SOMEONE ELSE? NO . ARE YOU ABUSED, NEGLECTED, OR IN AN UNSAFE ENVIRONMENT? NO . ENDOCRINOLOGY: ARE YOU DIABETIC? NO . OTHER: DO YOU NEED ANY PRESCRIPTIONS? NO . IF YES, PLEASE LIST: ____ . ANY NEW PROBLEMS WITH YOUR MEDICATIONS? NO . WHEN DID YOU LAST EAT? ____ . WHEN DID YOU LAST DRINK? ____ . WHAT DID YOU LAST DRINK? ____ . NAME OF PERSON DRIVING YOU HOME? ____ . DO YOU HAVE ANY OTHER QUESTIONS OR CONCERNS NO, PT DENIES RECEIVING FLU SHOT THIS SEASON. PT PLANS ON GETTING, DISCUSSED AVOIDING FLU SHOT WITHIN A MONTH OF PROCEDURES WITH US . VITAL SIGNS WT 233.4 LBS, HT 72 IN, BMI 31.65 INDEX, BP 133/77 MM HG, HR 100 /MIN, RR 16 /MIN, TEMP 98.3 F, OXYGEN SAT % 94%, NA INITIALS AW 0935, REVIEWED BY: EM. EXAMINATION GENERAL EXAMINATION: GENERAL APPEARANCE:COLOR PALE. PSYCHALERT , ORIENTED X 3 , APPROPRIATE MOOD AND AFFECT . LUNGS:SCATTERED WHEEZES. HEART:HEART RATE REGULAR. MUSCULOSKELETAL:TENDER OVER BILATERAL TROCANTERS . VERY SLOW TO RISE TO UPRIGHT POSITION. CANE USED FOR BALANCE. GAIT ANTALGIC. NEUROLOGIC EXAM:HIGH FREQUENCY TREMOR NOTED IN TRUNCK AND UPPER EXTREMITIES. ASSESSMENTS MYALGIA - M79.1 (PRIMARY) LUMBAR RADICULAR PAIN - M54.16 TROCHANTERIC BURSITIS OF LEFT HIP - M70.62 TROCHANTERIC BURSITIS, RIGHT HIP - M70.61 TREATMENT MYALGIA REFILL FENTANYL PATCH 72 HOUR, 50 MCG/HR, 1 PATCH TO SKIN, TRANSDERMAL, APPLY 1 PATCH TO SKIN EVERY 72 HOURS MDD=1, 30 DAY(S), 10, REFILLS 0 REFILL PERCOCET TABLET, 10-325 MG, 1 TABLET NEEDED, ORALLY, EVERY 6 HRS PRN PAIN MDD=2, 30 DAY(S), 60, REFILLS 0 ARTHROCENTESIS INJECTION LARGE JOINT ([id number])JADA MANSFIELD 05/26/2017 10:07:51 AM > BILATERAL NOTES: HOLD PRADAXA FOR 3 DAYS FOR INJECTION. CLINICAL NOTES: ISTOP REGISTRY REVIEWED AND DEMNOSTRATES COMPLLIANCE. (REF # [id number]) BRINGS IN MEDICATIONS WHICH IS APPROPRIATE FOR WHAT WAS DISPENSED. RECENT URINE TOXICOLOGY REVIEWED. NO UNAUTHORIZED MEDICATIONS. NO ILLICIT SUBSTANCES AND PRESCRIBED MEDICATIONS WERE PRESENT. PREVENTIVE MEDICINE PAIN CLINIC TEACHING: PROCEDURE TEACHING REVIEWED PROCEDURE AND INSTRUCTIONS WITH PATIENT AND S.O.. PROCEDURE CODES FA211 ESTABILISHED PATIENT [facility] CHARGE G8730 PAIN ASSESS POS TOOL F/U PLAN DOC G8427 DOC MEDS VERIFIED W/PT OR RE DISPOSITION & COMMUNICATION FOLLOW UP ONE MONTH (REASON: BACK/HIP PAIN) ELECTRONICALLY SIGNED BY AMADOR SANDRA ON 06/20/2017 AT 09:25 AM EST DISCLAIMER : THIS IS A VISIT SUMMARY EXTRACTED FROM THE [employer] CHART. IT IS NOT A COPY OF THE [employer] PROGRESS NOTE. [place]
== END ==
LOC: M PAIN 08:45
PROVIDERS: ATTEND Nurse Practitioner Family
DX: M79.1 Myalgia (principal); M54.16 Radiculopathy, lumbar region; M70.62 Trochanteric bursitis, left hip; M70.61 Trochanteric bursitis, right hip; I10 Essential (primary) hypertension; J44.9 Chronic obstructive pulmonary disease, unspecified; I48.91 Unspecified atrial fibrillation; F41.9 Anxiety disorder, unspecified; M32.9 Systemic lupus erythematosus, unspecified; F17.210 Nicotine dependence, cigarettes, uncomplicated; Z79.82 Long term (current) use of aspirin; Z79.891 Long term (current) use of opiate analgesic; Z79.899 Other long term (current) drug therapy; Z88.8 Allergy status to other drugs, medicaments and biological substances

== ENCOUNTER → 2017-06-18 | Outpatient (CLI) | payer MEDICARE, MEDICAID ==
--- NOTE | 2017-06-21 00:05 | ECWPNPC ---
PATIENT NAME: SHEEBA PAT : 1955 GENDER: MALE VISIT DATE: 06/18/2017 DISCHARGE DATE: 06/18/17 1516 VISIT LOCKED DATE TIME: PHYSICIAN: JADA MANSFIELD RESOURCE: JADA MANSFIELD REASON FOR APPOINTMENT 1. POST PROCEDURE HISTORY OF PRESENT ILLNESS HISTORY OF PRESENT ILLNESS: PAIN THE PATIENT DESCRIBES THE PAIN... FALL RISK SCREENING: SCREENING :NO FALLS IN THE PAST YEAR TODAY'S VISIT: NOTES: HAVING A BAD DAY TODAY. ALL THE JOINTS ARE BURNING AND BACK A PROBLEM FOR A FEW DAYS. HIP IS UNCOMFORTABLE ALONG WITH EVERY OTHER JOINT. RATES PAIN 10/10 TODAY AND DESCRIBES IT BURNING. CURRENT MEDICATIONS TAKING COMBIVENT 18-103 MCG/ACT AEROSOL 2 PUFFS INHALATION FOUR TIMES DAILY NEEDED TAKING BUSPIRONE HCL 10 MG TABLET 1 TABLET ORALLY THREE TIMES A DAY TAKING DILTIAZEM HCL 240 MG TABLET ORALLY DAILY TAKING FLUTICASONE PROPIONATE 50 MCG/ACT SUSPENSION 1 SPRAY IN EACH NOSTRIL NASALLY ONCE A DAY TAKING LISINOPRIL 10 MG TABLET 1 TABLET ORALLY ONCE A DAY TAKING PRADAXA 150 MG TABLET P.O. BID TAKING SPIRIVA HANDIHALER ONCE DAILY TAKING CRESTOR 10 MG TABLET ORALLY ONCE DAILY TAKING DIGOXIN 125 MCG TABLET 1 TABLET ORALLY ONCE A DAY TAKING FINASTERIDE 5 MG TABLET 1 TABLET ORALLY ONCE A DAY TAKING BREO ELLIPTA 100-25 MCG/INH AEROSOL POWDER BREATH ACTIVATED 1 PUFF INHALATION ONCE A DAY TAKING ASPIR-81 81 MG TABLET DELAYED RELEASE 1 TABLET ORALLY ONCE A DAY TAKING VOLTAREN 1 % GEL DIRECTED TRANSDERMAL 4 GMSFOUR TIMES DAILY TO KNEE/BACK TAKING CITALOPRAM HYDROBROMIDE 40 MG TABLET 1 TAB ORALLY ONCE A DAY TAKING HALDOL 5MG TABLET 1 -2MG TAB ORAL DAILY TAKING PROTONIX 40 MG TABLET DELAYED RELEASE 1 TABLET ORALLY ONCE A DAY TAKING ALBUTEROL 90 MCG/ACT AEROSOL SOLUTION INHALATION TAKING CYCLOBENZAPRINE HCL 10 MG TABLET 1 TABLET ORALLY THREE TIMES A DAY TAKING TERBINAFINE HCL 250 MG TABLET 1 TABLET ORALLY ONCE A DAY TAKING FENTANYL 50 MCG/HR PATCH 72 HOUR 1 PATCH TO SKIN TRANSDERMAL APPLY 1 PATCH TO SKIN EVERY 72 HOURS MDD=1 TAKING PERCOCET 10-325 MG TABLET 1 TABLET NEEDED ORALLY EVERY 6 HRS PRN PAIN MDD=2 TAKING LYRICA 200 MG CAPSULE 1 CAPSULE ORALLY THREE TIMES DAILY MDD=3 CHRONIC PAIN CODE D NOT-TAKING PERCOCET 10-325 MG TABLET 1 TABLET NEEDED ORALLY Q 8-12 HRS PRN PAIN MDD=2 MEDICATION LIST REVIEWED AND RECONCILED WITH THE PATIENT PAST MEDICAL HISTORY LUPUS HYPERCHLOESTREMIA HTN HARD PROSTRATE RIDICULAR BACK PAIN A-FIB COPD ANXIETY BILATERAL CARPAL TUNNEL SYNDROME ALLERGIES BETA LUI (FOR ALLERGIES USE ONLY): DYSPNEA: ALLERGY ATORVASTATIN CALCIUM: JOINT PAIN: SIDE EFFECTS SOCIAL HISTORY GENERAL: TOBACCO USE ARE YOU A:CURRENT SMOKER PATIENT COUNSELED ON THE DANGERS OF TOBACCO USE AND URGED TO QUIT:12/24/2016 ARE YOU INTERESTED IN QUITTING?THINKING ABOUT QUITTING COUNSELED THE PATIENT ON SMOKING CESSATION, EDUCATION [id number]/25/2017 ALCOHOL SCREENING POINTS: 0, INTERPRETATION: NEGATIVE. RECREATIONAL DRUG USE DRUG USE?NO LEARNING BARRIERS / SPECIAL NEEDS ABILITY TO UNDERSTAND VERBAL INSTRUCTIONS AVERAGE, ABILITY TO UNDERSTAND WRITTEN INSTRUCTIONS AVERAGE, CONGREGATIONAL? NO, LEARNING PREFERENCE NO PREFERENCE, PAIN MANAGEMENT PATIENT. PAIN CLINIC PFS, CLERGY, PUBLIC HEALTH REFERRALS HAS THE PATIENT BEEN EDUCATED REGARDING HIS/HER PLAN OF CARE?YES HAS THE PATIENT BEEN EDUCATED REGARDING PAIN, THE RISK FOR PAIN, THE IMPORTANCE OF EFFECTIVE PAIN MANAGEMENT, AND THE PAIN ASSESSMENT PROCESS?YES [facility] DIRECTIVES HEALTH CARE PROXY?NO POWER OF CONSUMER ADVOCATE?NO CURRENT SMOKER, DOWN TO 3 CIGS/DAY. REVIEW OF SYSTEMS REVIEWED BY: PROVIDER: JADA HAMILTON . CONSTITUTIONAL: ANY CHANGE IN YOUR MEDICAL CONDITION? NO . CHILLS NO . FEVER NO . INFECTION: DO YOU HAVE NEW INFECTIONS? NO . DO YOU HAVE HISTORY OF MRSA? NO . MUSCULOSKELETAL: ANY NEW PATTERNS OF PAIN OR NUMBNESS? NO . GASTROENTEROLOGY: ANY NEW CHANGE IN BOWEL CONTROL? NO . GENITOURINARY: ANY NEW CHANGE IN BLADDER CONTROL? NO . IS THERE A CHANCE YOU COULD BE ? NO . HEMATOLOGY/LYMPH: DO YOU TAKE ANY BLOOD THINNERS? (FOR EXAMPLE- COUMADIN, PLAVIX, AGGRENOX, PLATEL, PRADAXA, OR XARELTO) YES . WHEN WAS YOUR LAST DOSE? DATE: TIME: . NEUROLOGY: HAVE YOU FALLEN IN THE PAST 6 MONTHS? NO . ANY NEW EXTREMITY NUMBNESS OR WEAKNESS? NO . CARDIOLOGY: DO YOU HAVE A PACEMAKER OR DEFIBRILLATOR? NO . RESPIRATORY: HAVE YOU BEEN SICK IN THE PAST WEEK? NO . FEVER NO . FLU LIKE SYMPTOMS? NO . COUGH NO . INTEGUMENTARY: DO YOU HAVE ANY RASHES OR OPEN SORES? NO . ALLERGIC/IMMUNO: ARE YOU ALLERGIC TO SHELLFISH OR IV DYE? NO . ANY NEW ALLERGIES? NO . PSYCHIATRIC: DO YOU HAVE THOUGHTS OF HURTING YOURSELF OR SOMEONE ELSE? NO . ARE YOU ABUSED, NEGLECTED, OR IN AN UNSAFE ENVIRONMENT? NO . ENDOCRINOLOGY: ARE YOU DIABETIC? NO . OTHER: DO YOU NEED ANY PRESCRIPTIONS? NO . IF YES, PLEASE LIST: ____ . ANY NEW PROBLEMS WITH YOUR MEDICATIONS? NO . WHEN DID YOU LAST EAT? ____ . WHEN DID YOU LAST DRINK? ____ . WHAT DID YOU LAST DRINK? ____ . NAME OF PERSON DRIVING YOU HOME? ____ . DO YOU HAVE ANY OTHER QUESTIONS OR CONCERNS NO . VITAL SIGNS WT 230.4 LBS, HT 72 IN, BMI 31.24 INDEX, BP 121/69 MM HG, HR 98 /MIN, RR 16 /MIN, TEMP 99.2 F, OXYGEN SAT % 94%, NA INITIALS TL 1418, REVIEWED BY: NL. EXAMINATION GENERAL EXAMINATION: GENERAL APPEARANCE:COLOR PALE. PSYCHALERT , ORIENTED X 3 , APPROPRIATE MOOD AND AFFECT . LUNGS:SCATTERED WHEEZES. HEART:HEART RATE REGULAR. MUSCULOSKELETAL:TENDER OVER RIGHT > LEFT TROCANTER . VERY SLOW TO RISE TO UPRIGHT POSITION. CANE USED FOR BALANCE. GAIT ANTALGIC. NEUROLOGIC EXAM:HIGH FREQUENCY TREMOR NOTED IN TRUNCK AND UPPER EXTREMITIES. ASSESSMENTS MYALGIA - M79.1 (PRIMARY) LUMBAR RADICULAR PAIN - M54.16 TROCHANTERIC BURSITIS OF LEFT HIP - M70.62 TROCHANTERIC BURSITIS, RIGHT HIP - M70.61 TREATMENT MYALGIA REFILL FENTANYL PATCH 72 HOUR, 50 MCG/HR, 1 PATCH TO SKIN, TRANSDERMAL, APPLY 1 PATCH TO SKIN EVERY 72 HOURS MDD=1, 30 DAY(S), 10, REFILLS 0 REFILL PERCOCET TABLET, 10-325 MG, 1 TABLET NEEDED, ORALLY, EVERY 6 HRS PRN PAIN MDD=3, 30 DAY(S), 90, REFILLS 0 START TEGADERM + PAD 3-1/2"X13-3/4" MISCELLANEOUS, -, DIRECTED, TOPICALLY, APPLY OVER FENTANYL PATCH, 30 DAY(S), 10, REFILLS 2 CLINICAL NOTES: ISTOP REGISTRY REVIEWED AND DEMNOSTRATES COMPLLIANCE. (REF # [id number]) BRINGS IN MEDICATIONS WHICH IS APPROPRIATE FOR WHAT WAS DISPENSED. RECENT URINE TOXICOLOGY REVIEWED. NO UNAUTHORIZED MEDICATIONS. NO ILLICIT SUBSTANCES AND PRESCRIBED MEDICATIONS WERE PRESENT. PROCEDURE CODES FA211 ESTABILISHED PATIENT [facility] CHARGE G8730 PAIN ASSESS POS TOOL F/U PLAN DOC G8427 DOC MEDS VERIFIED W/PT OR RE DISPOSITION & COMMUNICATION FOLLOW UP 6-8 WEEKS (REASON: JOINT PAIN) ELECTRONICALLY SIGNED BY AMADOR SANDRA ON 06/20/2017 AT 06:54 PM EST DISCLAIMER : THIS IS A VISIT SUMMARY EXTRACTED FROM THE [employer] CHART. IT IS NOT A COPY OF THE [employer] PROGRESS NOTE. MTDD
== END ==
LOC: M PAIN 13:45
PROVIDERS: ATTEND Nurse Practitioner Family
DX: G89.29 Other chronic pain (principal); M79.1 Myalgia; M54.16 Radiculopathy, lumbar region; M70.62 Trochanteric bursitis, left hip; M70.61 Trochanteric bursitis, right hip; E78.00 Pure hypercholesterolemia, unspecified; I10 Essential (primary) hypertension; I48.91 Unspecified atrial fibrillation; J44.9 Chronic obstructive pulmonary disease, unspecified; F41.9 Anxiety disorder, unspecified; G56.03 Carpal tunnel syndrome, bilateral upper limbs; F17.210 Nicotine dependence, cigarettes, uncomplicated; Z79.891 Long term (current) use of opiate analgesic; Z79.899 Other long term (current) drug therapy; Z79.82 Long term (current) use of aspirin; M32.9 Systemic lupus erythematosus, unspecified; Z88.8 Allergy status to other drugs, medicaments and biological substances

== ENCOUNTER → 2017-09-06 | Outpatient (CLI) | payer MEDICARE, MEDICAID | LOC: M PAIN 09:45 | DX: M54.16 Radiculopathy, lumbar region (principal); M51.36 Other intervertebral disc degeneration, lumbar region; M19.91 Primary osteoarthritis, unspecified site; M79.1 Myalgia; M32.9 Systemic lupus erythematosus, unspecified; E78.00 Pure hypercholesterolemia, unspecified; I10 Essential (primary) hypertension; I48.91 Unspecified atrial fibrillation; J44.9 Chronic obstructive pulmonary disease, unspecified; F41.9 Anxiety disorder, unspecified; F17.200 Nicotine dependence, unspecified, uncomplicated; Z79.01 Long term (current) use of anticoagulants; Z79.51 Long term (current) use of inhaled steroids; Z79.82 Long term (current) use of aspirin; Z79.899 Other long term (current) drug therapy; Z79.891 Long term (current) use of opiate analgesic; Z88.8 Allergy status to other drugs, medicaments and biological substances | CPT/HCPCS: G0463 ==

== ENCOUNTER → 2017-12-10 | Outpatient (CLI) | payer MEDICARE, MEDICAID | LOC: M PAIN 10:45 | DX: M19.91 Primary osteoarthritis, unspecified site (principal); M79.1 Myalgia; M54.16 Radiculopathy, lumbar region; M32.9 Systemic lupus erythematosus, unspecified; E78.00 Pure hypercholesterolemia, unspecified; I10 Essential (primary) hypertension; I48.91 Unspecified atrial fibrillation; H44.9 Unspecified disorder of globe; F41.9 Anxiety disorder, unspecified; F17.200 Nicotine dependence, unspecified, uncomplicated; Z79.51 Long term (current) use of inhaled steroids; Z79.82 Long term (current) use of aspirin; Z79.891 Long term (current) use of opiate analgesic; Z79.899 Other long term (current) drug therapy; Z88.8 Allergy status to other drugs, medicaments and biological substances | CPT/HCPCS: G0463 ==

== ENCOUNTER → 2021-03-28 | Outpatient (CLI) | payer MEDICARE, MEDICAID ==
[~2021-03-28] MED LIST changes: -/IPRAINH INH; -ASPI1TAB PO; +ASPI81TA26 PO; -ASPI81TA85 PO; +ASPI81TA86 PO; +ATRO0.063 INH; +BACL1TAB9 PO; +BREO1INH INH; +BUPR150T12 PO; +BUSP30TA PO; +CITA20TA7 PO; -CRES20TA PO; +CRES20TA2 PO; +DIGO0.123 PO; +DILT240C28 PO; +EFFE37.5 PO; -EFFE37.527 PO; +HALO0.5H PO; -HALO05TA PO; +HALO1TAB19 PO; +HYDR50CA2 PO; +LISI-898 PO; +MULT400T10 PO; +PANT40TA29 PO; +PRAD150C6 PO; +PRAV80TA2 PO; +QC A650T3 PO; +QUET400T2 PO; +ROPI0.5T3 PO; +TAMS1CAP17 PO; +TIZA4CAP PO; -TIZA4CAP3 PO
== END ==
LOC: M LABSMTC 09:37
PROVIDERS: ATTEND Anesthesiology
DX: Z01.812 Encounter for preprocedural laboratory examination (principal); Z20.822 Contact with and (suspected) exposure to COVID-19

== ENCOUNTER 2021-04-02 08:20 | Day surgery (SDC) | payer MEDICARE, MEDICAID ==
[~2021-04-02] VITALS: Ht 182.9 cm; Wt 108.9 kg
[~2021-04-02 08:20] MED LIST changes: -LISI-898 PO; +LISI5TAB11 PO; +LR 1,000 ML IV ONE; +ceFAZolin SOD 2 GM in IV 1 EA IV ONE
[2021-04-02] MEDS ORDERED: fentaNYL 100 MCG/2 ML INJECTION (J3010) As Ordered ONE (09:26)
[2021-04-02] MEDS ORDERED: MIDAZOLAM INJ 2MG/2ML VIAL (J2250 PER 1MG) As Ordered ONE (09:26)
[2021-04-02] MEDS ORDERED: LIDOCAINE 2% 100MG/5ML SDV (FOR ANES.) As Ordered ONE (09:27)
[2021-04-02] MEDS ORDERED: propofoL 200 MG/20 ML VIAL As Ordered ONE ×2 (09:27→11:31)
[2021-04-02] MEDS ORDERED: dexameTHASONE 4 MG/ML 1ML VIAL (J1100 PER 1MG) As Ordered ONE (09:28)
[2021-04-02] MEDS ORDERED: LIDOCAINE 1% SDV 30ML VIAL As Ordered ONE (09:28)
[2021-04-02] MEDS ORDERED: BUPIVACAINE HCL 0.5% 30 ML VIAL As Ordered ONE (09:28)
[2021-04-02] MEDS ORDERED: ACETAMINOPHEN 1000MG 100ML IV BTL (OFIRMEV) (J0131 PER 10MG) As Ordered ONE (11:26)
[2021-04-02] MEDS ORDERED: ONDANSETRON 4MG/2ML VIAL As Ordered ONE (11:37)
[2021-04-02] MEDS ORDERED: HYDR-3713 PO (11:49)
[2021-04-02 11:54] VITALS: BP 141/94
== END 2021-04-02 12:55 | disposition home or self-care (01) ==
LOC: M SDC 08:20
PROVIDERS: ATTEND Podiatrist Foot & Ankle Surgery
DX: M21.6X1 Other acquired deformities of right foot (principal); L84 Corns and callosities; I48.91 Unspecified atrial fibrillation; I10 Essential (primary) hypertension; E78.2 Mixed hyperlipidemia; E11.40 Type 2 diabetes mellitus with diabetic neuropathy, unspecified; K21.9 Gastro-esophageal reflux disease without esophagitis; R06.02 Shortness of breath; M19.90 Unspecified osteoarthritis, unspecified site; F32.9 Major depressive disorder, single episode, unspecified; F41.0 Panic disorder [episodic paroxysmal anxiety]; Z86.73 Personal history of transient ischemic attack (TIA), and cerebral infarction without residual deficits; J44.9 Chronic obstructive pulmonary disease, unspecified; R06.83 Snoring; N40.0 Benign prostatic hyperplasia without lower urinary tract symptoms; F17.210 Nicotine dependence, cigarettes, uncomplicated; Z88.8 Allergy status to other drugs, medicaments and biological substances; Z79.899 Other long term (current) drug therapy; Z79.51 Long term (current) use of inhaled steroids; Z79.01 Long term (current) use of anticoagulants
CPT/HCPCS: 28112; 88300; 93005; J0131; J0690; J2250; J2405; J3010